=== PATIENT | male | born 1960 | race Caucasian/White ===

== ENCOUNTER 2023-01-23 09:47 | Outpatient (CLI) | payer OTHER ==
--- NOTE | 2023-01-23 14:32 | Ultrasound Report ---
PROCEDURE: Abdomen Limited INDICATIONS: UMBILICAL HERNIA TECHNIQUE: Real-time focused scanning was performed of the abdomen, with image documentation. COMPARISONS: None. FINDINGS: No fascial defect in the anterior abdominal wall in the area of concern. No fascial defect around the umbilicus. No subcutaneous cyst or solid mass. Irregular hypoechoic scar is seen in subcutaneous tis ricardo. IMPRESSION: No evidence of abdominal wall hernia. Reviewed by: Elsa Stallworth MD on 01/23/2023 2:31 PM PST Approved by: Elsa Stallworth MD on 01/23/2023 2:31 PM PST Station ID: [id number]
== END 2023-01-23 09:48 | disposition home or self-care (01) ==
LOC: DI 09:47
PROVIDERS: ATTEND Physician Assistant
DX: K42.9 Umbilical hernia without obstruction or gangrene (principal)

== ENCOUNTER 2024-11-18 00:24 | Inpatient (IN) ==
[2024-11-18 01:16] LABS: HCT - HEMATOCRIT 45.4 % (42.0-52.0); HGB - HEMOGLOBIN 15.0 g/dL (14.0-18.0); MEAN PLATELET VOLUME 9.5 fL (7.4-11.4); NRBC ABSOLUTE COUNT (AUTO) 0.00 x10^3/uL; NUCLEATED RED BLOOD CELLS AUTO 0.0 /100WBC; PLT - PLATELET COUNT 220 10^3/uL (130-450); RED CELL DISTRIBUTION WIDTH 12.9 % (12.0-15.0)
[2024-11-18 01:29] LABS: ALT ALANINE AMINOTRANSFERASE 247.0 IU/L (10-60); AST ASPARTATE AMINOTRANSFERASE 172.0 IU/L (10-42); BUN - BLOOD UREA NITROGEN 18.0 mg/dL (6-20); CARBON DIOXIDE - CO2 26.0 mmol/L (21-32); CREATININE 1.0 mg/dL (0.6-1.3); GFR - MDRD 75.0 (>89)
[2024-11-18] MEDS: ONDANSETRON 4 MG/2 ML VIAL IVP STA (01:29)
[2024-11-18] MEDS: HYDROmorphone 0.5 MG/0.5 ML SYRINGE IVP STA (01:29)
[2024-11-18] MEDS: SODIUM CHLORIDE 0.9% 1,000 ML IV STA (01:29)
[2024-11-18 01:47] LABS: GLUCOSE, URINE (UA) NEGATIVE (NEGATIVE); KETONES,URINE (UA) NEGATIVE (NEGATIVE)
[2024-11-18 01:48] LABS: OCCULT BLOOD,URINE TRACE (NEGATIVE)
[2024-11-18 01:53] LABS: SQUAMOUS EPITHELIAL CELL,UR RARE Squamous (<= Few)
[2024-11-18] MEDS ORDERED: HYDROmorphone 0.5 MG/0.5 ML SYRINGE IVP PRN (02:01)
--- NOTE | 2024-11-18 02:02 | ED Physician Documentation ---
PD HPI ABD PAIN Stated complaint Stated Complaint: ABD PX Chief complaint Chief Complaint: Abd Pain History obtained from History obtained from: Patient Additional information Additional information: 64yM with pmh gallstones p/w epigastric pain radiating to the back today. also with malaise. denies urinary sx, fever, n/v/d Meds/Allgy Home Medications Ambulatory Orders Medication Instructions Recorded Confirmed dicyclomine 10 mg capsule 10 mg PO QID PRN abdominal p ain 11/05/24 #10 caps hydrocodone 5 mg-acetaminophen 325 1 tab PO Q6H PRN pa in #10 tabs 11/05/24 mg tablet Allergies Allergies Allergy/AdvReac Type Severity Reaction Status Date / Time No Known Drug Allergies Allergy Verified 11/18/24 00:51 PFSH Active Problems All Active Problems (Updated 11/18/24 @ 02:17 by Nell Elder MD) Acute gallstone pancreatitis (Acute) Gallbladder attack (Acute) Gallstones (Acute) Recurrent upper abdominal pain (Acute) Medical History Medical History (Updated 11/18/24 @ 02:17 by Nell Elder MD) No pertinent past medical history Surgical History Surgical History (Updated 11/05/24 @ 08:04 by Owen Ross RN) Hx of appendectomy Social History Social History (Updated 11/05/24 @ 08:04 by Owen Ross, RN) Smoking Status: Never smoker Do you dip or chew tobacco?: No Do you vape?: No Living arrangement: At home Level: Independent Do you feel safe in your home environment?: Yes History of physical, verbal, emotional, or financial abuse?: No ETOH Use: Beer Frequency: Occasional Substance Use: denies use POLST Patient has POLST: No Exam Exam Vital Signs: Vital Signs x48h Temp Pulse Resp BP Pulse Ox 11/18/24 00:44 37.0 C 67 18 147/83 H 95 Constitutional normal general appearance, no apparent distress and average body habitus HENMT normocephalic, head/scalp atraumatic and oropharynx normal Eyes PERRL and EOMs intact bilaterally Neck/C-Spine visual inspection normal Respiratory breath sounds equal bilaterally, normal respiratory effort and clear to auscultation bilaterally Cardiovascular normal heart rate noted and regular rhythm noted Gastrointestinal epigastium ttp Genitourinary no CVA tenderness Results Vitals Vitals: Vital Signs - 24 hr 10/03/25 00:44 11/18/24 01:29 Temperature 37.0 C Temperature Source Tympanic Pulse Rate 67 Respiratory Rate 18 Blood Pressure 147/83 H O2 Saturation 95 O2 Source Room air Pain Intensity 5 7 Oxygen O2 Source Room air Labs Labs: Laboratory Tests 11/18/24 11/18/24 01:11 01:34 WBC 9.7 RBC 4.84 Hgb 15.0 Hct 45.4 MCV 93.8 MCH 31.0 MCHC 33.0 RDW 12.9 Plt Count 220 MPV 9.5 Neut # (Auto) 8.3 H Lymph # (Auto) 0.9 L [place] # (Auto) 0.4 Eos # (Auto) 0.0 Baso # (Auto) 0.0 Absolute Nucleated RBC 0.00 Nucleated RBC % 0.0 Sodium 138 Potassium 3.9 Chloride 105 Carbon Dioxide 26 Anion Gap 7.0 BUN 18 Creatinine 1.0 Estimated GFR (MDRD) 75 L Glucose 169 H Calcium 9.1 Total Bilirubin 1.0 AST 172 H ALT 247 H Alkaline Phosphatase 129 H Total Protein 7.2 Albumin 4.5 Globulin 2.7 Albumin/Globulin Ratio 1.7 Lipase 5978 H Urine Color DARK YELLOW Urine Clarity CLEAR Urine pH 5.0 Ur Specific [place] 1.020 Urine Protein TRACE Urine Glucose (UA) NEGATIVE Urine Ketones NEGATIVE Urine Occult Blood TRACE Urine Nitrite NEGATIVE Urine Bilirubin NEGATIVE Urine Urobilinogen 0.2 (NORMAL) Ur Leukocyte Esterase NEGATIVE Urine RBC 0-5 Urine WBC 0-3 Ur Squamous Epith Cells RARE Squamous Urine Bacteria None Seen Ur Microscopic Review INDICATED Urine Culture Comments NOT INDICATED PD Medical Decision Making ED course ED course: 64yM p/w gallstone pancreatitis today, found to have lipase >5000. d/w Dr. Briseno who states he can likely do ERCP thursday and will also evaluate patient for possible cholecystectomy. plan to admit to medicine Discharge Plan Discharge Patient Disposition: 66 [facility] DC/Xfer Condition: Stable Clinical Impression: Acute gallstone pancreatitis Prescriptions: No Action dicyclomine 10 mg capsule 10 mg PO QID PRN (Reason: abdominal pain) Qty: 10 0RF hydrocodone-acetaminophen 5-325 mg tablet 1 tab PO Q6H PRN (Reason: pain) Qty: 10 0RF Print Language: Danish
--- NOTE | 2024-11-18 02:41 | CT Report ---
PROCEDURE: CT Abdomen/Pelvis W INDICATIONS: abd pain CONTRAST: 100cc [id number] TECHNIQUE: After the administration of intravenous contrast, a CT scan of the abdomen and pelvis was performed. Images were recorded and evaluated at appropriate window settings. Reformats: coronal and sagittal. For radiation dose reduction, the following was used: automated exposure control, adjustment of mA and/or kV according to patient size. COMPARISON: CT abdomen pelvis 11/05/2024. FINDINGS: Image quality: Diagnostic. Lower chest: Unremarkable. Liver: Hepatic steatosis. No focal lesion identified. Gallbladder: Gallstones. Biliary tree: No intrahepatic or extrahepatic dilation, accounting for age. Spleen: No splenomegaly. Pancreas: Mild ill-defined fluid near the head and neck of the pancreas. No pancreatic ductal dilatation. No pancreatic calcifications. The pancreatic parenchyma enhances uniformly. Adrenals: No adrenal nodule. Kidneys and ureters: No hydronephrosis. Left peripelvic cyst. No renal cystic lesion which requires follow up. No solid mass. Stomach, bowel and peritoneum: Stomach is within normal limits. The proximal duodenum is fluid-filled and slightly hyperemic. No small bowel obstruction. A few colonic diverticuli. No diverticulitis. Appendix is presumably absent. Lymph nodes: No central or retroperitoneal adenopathy. Vessels: No infrarenal aortic aneurysm. Patent portal vein. PELVIS Reproductive organs: Unremarkable. Bladder: No abnormal wall thickening. Pelvic lymph nodes: No pelvic adenopathy by size criteria. Bones: No aggressive osseous abnormality. Other: No significant ventral or inguinal hernia. IMPRESSION: 1. Acute interstitial edematous pancreatitis. Small volume of free fluid near the head and neck of the pancreas. Associated duodenitis. 2. No biliary or pancreatic ductal dilatation is seen. 3. Gallstones. 4. Hepatic steatosis. Reviewed by: Shailesh Piper MD on 11/18/2024 2:37 AM PDT Approved by: Shailesh Piper MD on 11/18/2024 2:37 AM PDT Station ID: [id number]
[2024-11-18] MEDS: SODIUM CHLORIDE 0.9% 500 ML IV ONE (02:45)
[2024-11-18] MEDS ORDERED: DICYCLOMINE 10 MG CAPSULE PO PRN (02:53)
[2024-11-18] MEDS ORDERED: ONDANSETRON 4 MG/2 ML VIAL IVP PRN (02:55)
[2024-11-18] MEDS ORDERED: NITROGLYCERIN SL 0.4 MG TABLET SL PRN (02:55)
[2024-11-18] MEDS ORDERED: MELATONIN 3 MG TABLET PO PRN (02:55)
[2024-11-18] MEDS ORDERED: MORPHINE 10 MG/ML VIAL IVP PRN (02:55)
[2024-11-18] MEDS ORDERED: KETOROLAC 15 MG/ML VIAL IVP PRN (02:55)
[2024-11-18] MEDS ORDERED: IBUPROFEN 400 MG TABLET PO PRN (02:58)
[2024-11-18] MEDS ORDERED: CALAMINE/ZINC OXIDE 177 ML BOTTLE TOP PRN (02:59)
[2024-11-18] MEDS ORDERED: CARBOXYMETHYLCELLULOSE OPHTH DROPS EACHEYE PRN (02:59)
[2024-11-18] MEDS ORDERED: PHENOL THROAT SPRAY 177 ML MM PRN (02:59)
[2024-11-18] MEDS ORDERED: BENZOCAINE/MENTHOL LOZENGE MM PRN (02:59)
[2024-11-18 03:13] LABS: CHOL/HDL RATIO 4.4 (<5.0); LDL/HDL RATIO 2.8 (<3.6); VLDL CHOLESTEROL 29 mg/dL
--- NOTE | 2024-11-18 04:29 | HISTORY & PHYSICAL EXAMINATION ---
Chief Complaint Chief Complaint Chief Complaint: abd pain, nausea, vomiting History of Present Illness History of Present Illness HPI Comment/Other: pt with intermitted abd pain + cramping + vomiting x 2 months. h/o open appendectomy d/t perforated appendicitis. pt was recently seen in er d/t pain and was diagnosed with gallstones with cholecystitis and given rx for norco + dicyclomine and told to f/u with pcp, who advised that pt will need to be seen by gi, which has not happened yet. pt started having worsening pain over last 3- 4 days, and last night he called nursing hotline with [facility], where he was able to speak with a doctor, who stated that he may be having a dislodging stone or infection and told to come to ed [facility]. pt has 2 sisters who have had cholesytectomies. he takes no other meds. no chest pain or sob. diet over last couple of months has been poor -- limited to soups and light foods. Review of Systems Status of ROS: 10 or more systems reviewed and unremarkable except as noted in history and below PFSH Active Problems All Active Problems (Updated 11/18/24 @ 02:17 by Nell Elder MD) Acute gallstone pancreatitis (Acute) Gallbladder attack (Acute) Gallstones (Acute) Recurrent upper abdominal pain (Acute) Medical History Medical History (Updated 11/18/24 @ 02:17 by Nell Elder MD) No pertinent past medical history Surgical History Surgical History (Updated 11/05/24 @ 08:04 by Owen oRss RN) Hx of appendectomy Social History Social History (Updated 11/05/24 @ 08:04 by Owen Ross RN) Smoking Status: Never smoker Do you dip or chew tobacco?: No Do you vape?: No Living arrangement: At home Level: Independent Do you feel safe in your home environment?: Yes History of physical, verbal, emotional, or financial abuse?: No ETOH Use: Beer Frequency: Occasional Substance Use: denies use POLST Patient has POLST: No Meds/Allgy Home Medications Ambulatory Orders Medication Instructions Recorded Confirmed dicyclomine 10 mg capsule 10 mg PO QID PRN abdominal p ain 11/05/24 #10 caps hydrocodone 5 mg-acetaminophen 325 1 tab PO Q6H PRN pa in #10 tabs 11/05/24 mg tablet Allergies Allergies Allergy/AdvReac Type Severity Reaction Status Date / Time No Known Drug Allergies Allergy Verified 11/18/24 00:51 Exam Exam Vital Signs: Vital Signs x48h Temp Pulse Pulse Resp BP BP Pulse Ox 11/18/24 03:56 36.8 C 74 16 160/90 H 97 11/18/24 03:40 37.2 C 68 18 128/84 99 11/18/24 02:51 65 18 132/80 H 99 11/18/24 00:44 37.0 C 67 18 147/83 H 95 gen - aaox3, nad heent - eomi, nc/at heart - per ed charting lungs - no obvious distress / retractions abd - details per ed charting msk - no acute trauma / pathology Conclusion/Plan Problem List (1) Acute gallstone pancreatitis: Lab Results 11/18/24 01:11 11/18/24 01:11 Other Other Results/Comments: pt with - - acute on chronic abdominal pain d/t gallstone pancreatitis also with transaminitis (below) pain control, ivf gen surg consulted --> plan for lap cruz and/or ercp zosyn started as well for now - tranasminitis in setting of above avoid hepatotoxins - hyperglycemia exacerbated d/t above no reported or known h/o t2dm check a1c, tsh, lipids - elevated bp in setting of pain d/t above no reported or known h/o htn monitor for now
[2024-11-18] MEDS: PIPERACILLIN/TAZOBACTAM 4.5 GM in SODIUM CHLORIDE 0.9% MINIBAG 100 ML IV STA (04:41)
[2024-11-18] MEDS: LACTATED RINGERS 1,000 ML IV SCH (05:10)
[2024-11-18 05:55] LABS: HCT - HEMATOCRIT 39.9 % (42.0-52.0); HGB - HEMOGLOBIN 13.4 g/dL (14.0-18.0); MEAN PLATELET VOLUME 10.1 fL (7.4-11.4); NRBC ABSOLUTE COUNT (AUTO) 0.00 x10^3/uL; NUCLEATED RED BLOOD CELLS AUTO 0.0 /100WBC; PLT - PLATELET COUNT 208 10^3/uL (130-450); RED CELL DISTRIBUTION WIDTH 13.0 % (12.0-15.0)
[2024-11-18 06:14] LABS: ALT ALANINE AMINOTRANSFERASE 208.0 IU/L (10-60); AST ASPARTATE AMINOTRANSFERASE 118.0 IU/L (10-42); BUN - BLOOD UREA NITROGEN 14.0 mg/dL (6-20); CARBON DIOXIDE - CO2 26.0 mmol/L (21-32); CREATININE 0.9 mg/dL (0.6-1.3); GFR - MDRD 85.0 (>89)
[2024-11-18] MEDS: LACTOBACILLUS RHAMNOSUS GG CAPSULE PO SCH (08:45)
[2024-11-18] MEDS: PANTOPRAZOLE 40 MG VIAL IVP SCH (08:45)
[2024-11-18] MEDS: ethyl alcohoL 62% SWAB AMPULE NAS SCH (08:45)
[2024-11-18 09:07] LABS: ESTIMATED AVERAGE GLUCOSE 105 mg/dL (70-100); HEMOGLOBIN A1c% 5.3 % (4.27-6.07)
--- NOTE | 2024-11-18 09:19 | CONSULTATION NOTE ---
Referring Provider Name of Referring Provider:: Dr. Elder Consult Date: 11/18/24 Chief Complaint Chief Complaint Chief Complaint: Abdominal pain History of Present Illness History Obtained From History obtained from: Patient History of Present Illness HPI Comment/Other: 64 yo M w/out significant pmh and past surgical history of open appendectomy for perforated appendicitis who presented to the ED on 11/18 with significant abdominal pain with associated nausea and vomiting. States for the past two months he has had multiple episodes of pain in the right side of the abdomen which prompted an ED visit last month. At that time he was told the pain was from stones in his gallbladder for which he was referred outpatient to a surgeon. Due to insurance issues he was unable to see the surgeon he was referred to and subsequently got referred to a surgeon at [facility] and has an appointment for mid November. Over the last few days he developed worsening pain all over his abdomen which was more severe than his previous episodes prompting his visit to the ED. He had associated nausea, vomiting, and bloating and states that he has stopped passing flatus. He does have multiple family members who have required cholecystectomies for gallbladder issues in the past. He denies any current chest pain, SOB, fevers, chills, dysuria or headaches. PFSH Active Problems All Active Problems (Updated 11/18/24 @ 02:17 by Nell Elder MD) Acute gallstone pancreatitis (Acute) Gallbladder attack (Acute) Gallstones (Acute) Recurrent upper abdominal pain (Acute) Medical History Medical History (Updated 11/18/24 @ 02:17 by Nell Elder MD) No pertinent past medical history Surgical History Surgical History (Updated 11/05/24 @ 08:04 by Owen Ross RN) Hx of appendectomy Social History Social History (Updated 11/05/24 @ 08:04 by Owen Ross RN) Smoking Status: Never smoker Second hand tobacco smoke exposure: No Do you dip or chew tobacco?: No Do you vape?: No Living arrangement: At home Level: Independent Do you feel safe in your home environment?: Yes History of physical, verbal, emotional, or financial abuse?: No ETOH Use: Beer Frequency: Occasional Substance Use: denies use POLST Patient has POLST: No Meds/Allgy Home Medications Ambulatory Orders Medication Instructions Recorded Confirmed dicyclomine 10 mg capsule 10 mg PO QID PRN abdominal p ain 11/05/24 #10 caps hydrocodone 5 mg-acetaminophen 325 1 tab PO Q6H PRN pa in #10 tabs 11/05/24 mg tablet Allergies Allergies Allergy/AdvReac Type Severity Reaction Status Date / Time No Known Drug Allergies Allergy Verified 11/18/24 00:51 Results Lab Results Lab results reviewed: Yes 11/18/24 05:04 11/18/24 05:04 Other Lab Results: Lab Results x24hrs 11/18/24 11/18/24 11/18/24 Range/Units 05:04 01:34 01:11 WBC 7.4 9.7 (4.8-10.8) x10^3/uL RBC 4.24 L 4.84 (4.70-6.10) 10^6/uL Hgb 13.4 L 15.0 (14.0-18.0) g/dL Hct 39.9 L 45.4 (42.0-52.0) % MCV 94.1 H 93.8 (80.0-94.0) fL MCH 31.6 H 31.0 (27.0-31.0) pg MCHC 33.6 33.0 (32.0-36.0) g/dL RDW 13.0 12.9 (12.0-15.0) % Plt Count 208 220 (130-450) 10^3/uL MPV 10.1 9.5 (7.4-11.4) fL Neut # (Auto) 6.0 8.3 H (1.5-6.6) 10^3/uL Lymph # (Auto) 1.0 L 0.9 L (1.5-3.5) 10^3/uL [place] # (Auto) 0.4 0.4 (0.0-1.0) 10^3/uL Eos # (Auto) 0.0 0.0 (0.0-0.7) 10^3/uL Baso # (Auto) 0.0 0.0 (0.0-0.1) 10^3/uL Absolute Nucleated RBC 0.00 0.00 x10^3/uL Nucleated RBC % 0.0 0.0 /100WBC Sodium 138 138 (135-145) mmol/L Potassium 4.2 3.9 (3.5-4.5) mmol/L Chloride 108 105 (101-111) mmol/L Carbon Dioxide 26 26 (21-32) mmol/L Anion Gap 4.0 L 7.0 (6-13) BUN 14 18 (6-20) mg/dL Creatinine 0.9 1.0 (0.6-1.3) mg/dL Estimated GFR (MDRD) 85 L 75 L (>89) Glucose 117 H 169 H (74-104) mg/dL Calcium 8.3 L 9.1 (8.5-10.3) mg/dL Magnesium 2.0 (1.7-2.3) mg/dL Total Bilirubin 0.8 1.0 (0.2-1.0) mg/dL AST 118 H 172 H (10-42) IU/L ALT 208 H 247 H (10-60) IU/L Alkaline Phosphatase 113 129 H (42-121) IU/L Total Protein 6.4 7.2 (6.4-8.9) g/dL Albumin 4.2 4.5 (3.2-5.5) g/dL Globulin 2.2 2.7 (2.1-4.2) g/dL Albumin/Globulin Ratio 1.9 1.7 (1.0-2.2) Triglycerides 146 mg/dL Cholesterol 199 ( - 200) mg/dL LDL Cholesterol, Calc 125 ( - 129) mg/dL VLDL Cholesterol 29 mg/dL HDL Cholesterol 45 L (60 - ) mg/dL LDL/HDL Ratio 2.8 (<3.6) Cholesterol/HDL Ratio 4.4 (<5.0) Lipase 5978 H (11-82) U/L TSH 2.19 (0.34-5.60) uIU/mL Urine Color DARK YELLOW Urine Clarity CLEAR (CLEAR) Urine pH 5.0 (5.0-7.5) PH Ur Specific [place] 1.020 (1.002-1.030) Urine Protein TRACE (NEGATIVE) mg/dL Urine Glucose (UA) NEGATIVE (NEGATIVE) mg/dL Urine Ketones NEGATIVE (NEGATIVE) mg/dL Urine Occult Blood TRACE (NEGATIVE) Urine Nitrite NEGATIVE (NEGATIVE) Urine Bilirubin NEGATIVE (NEGATIVE) Urine Urobilinogen 0.2 (NORMAL) (NORMAL) E.U./dL Ur Leukocyte Esterase NEGATIVE (NEGATIVE) Urine RBC 0-5 (0-5) /HPF Urine WBC 0-3 (0-3) /HPF Ur Squamous Epith Cells RARE Squamous (<= Few) Urine Bacteria None Seen (None Seen) /HPF Ur Microscopic Review INDICATED Urine Culture Comments NOT INDICATED Diagnostic Imaging Results Diagnostic Imaging Results: positive Final report reviewed Review of Systems Status of ROS: 10 or more systems reviewed and unremarkable except as noted in history and below Exam Exam Vital Signs: Vital Signs x48h Temp Pulse Pulse Resp BP BP Pulse Ox 11/18/24 03:56 36.8 C 74 16 160/90 H 97 11/18/24 03:40 37.2 C 68 18 128/84 99 11/18/24 02:51 65 18 132/80 H 99 Constitutional normal general appearance and no apparent distress HENMT normocephalic and head/scalp atraumatic Eyes conjunctivae normal and no scleral icterus Neck/C-Spine visual inspection normal Respiratory normal respiratory effort Cardiovascular normal heart rate noted and regular rhythm noted Gastrointestinal abdomen abnormal to inspection (Lower midline surgical scar consistent with previous open appendectomy), abdomen soft to palpation and tender to palpation (Mild diffuse TTP but more severe in the epigastrium) Extremities normal to inspection Neurology GCS 15 Psychiatry cooperative and affect normal Skin skin color normal Conclusion/Plan Problem List (1) Acute gallstone pancreatitis: Plan: - RUQ US ordered to evaluate gallbladder - Continue supportive care for pancreatitis - Continue to monitor lipase - Will plan for cholecystectomy before discharge - Rest of care per primary Lab Results Lab results reviewed: Yes 11/18/24 05:04 11/18/24 05:04 Diagnostic Imaging Results Diagnostic Imaging Results: positive Final report reviewed
[2024-11-18] MEDS ORDERED: MORPHINE 2 MG/ML CARPUJECT IVP PRN (10:09)
[2024-11-18] MEDS: PIPERACILLIN/TAZOBACTAM 3.375 GM in SODIUM CHLORIDE 0.9% MINIBAG 100 ML IV SCH (11:10)
--- NOTE | 2024-11-18 12:47 | PROVIDER PROGRESS NOTE ---
Progress Note Progress Note Progress Note: General Surgery Pre-op Note Randy is a 64 year old male with clinical, lab, and image findings consistent with gallstone pancreatitis. It is my recommendation that he undergo laparoscopic cholecystetomy, possible open cholecystectomy, possible intra-oper ative cholangiography (IOC). At the present time he is pain free without clinical, image, or lab evidence of choledocholithiasis. His serum lipase was 5,978 and T Bili 0.8 at 0500 today. The serum lipase will be checked again later this afternoon. Surgery is scheduled for tomorrow morning. He will be permitted to take clears today and be made NPO after midnight. I will write the transfer orders tomorrow morning. Consent: Randy has been counseled for the procedure, it's indications, risks, benefits and expected outcome. We specifically discussed risks associated with anesthesia, bleeding, infection, injury to surrounding structures which may require additional surgery, and the possible need for conversion to an open procedure. We also discussed the possible need for a blood transfusion with its risks and benefits. Randy understands the content of our discussion and requests that we proceed with the procedure as outlined. Gibran Akhtar MD, [facility] General Surgery Service
--- NOTE | 2024-11-18 13:03 | Ultrasound Report ---
PROCEDURE: US Abdomen Limited INDICATIONS: Suspect gallstone pancreatitis TECHNIQUE: Real-time focused scanning was performed of the abdomen, with image documentation. COMPARISONS: CT examination November 18, 2024. FINDINGS: Liver: Liver is normal in size and homogeneous in echotexture. Gallbladder: Gallbladder contracted and partially secured by calcified gallstones. Biliary ducts: Intrahepatic bile ducts are non-dilated. Extrahepatic bile duct caliber measures 3.5 mm. Normal is 6-7 mm or less in diameter, or 10 mm or less post-cholecystectomy. Pancreas: Not visible due to overlying bowel gas Right kidney: Normal in size and echotexture. Right kidney measures 10.6 cm long. 0.7 x 0.8 x 0.5 cm calcified stone in the right kidney pelvis. No hydronephrosis. No solid masses. Simple renal cysts. No complex renal cystic lesions which require follow-up. IVC: Intrahepatic inferior vena cava is patent. Miscellaneous: No free abdominal fluid. IMPRESSION: 1. Pancreas obscured by bowel gas. 2. Cholelithiasis. 3. No biliary duct dilation. Reviewed by: Segun Watt MD on 11/18/2024 1:00 PM PDT Approved by: Segun Watt MD on 11/18/2024 1:00 PM PDT Station ID: [id number]
--- NOTE | 2024-11-18 13:26 | PROVIDER PROGRESS NOTE ---
<Statement entered by Eulogio Medina, DO - 11/18/24 18:43> I was present with the JANIYA student on the hospitalist service. I personally verified the history of present illness and performed the physical examination and medical decision making. I have verified all of the medical students documentation for this encounter and agree with the plan of care below. In brief this is a 64-year-old gentleman with a past medical history notable for symptomatic cholelithiasis and recent diagnosis of mild cholecystitis who is planned for outpatient cholecystectomy presenting with acute gallstone pancreatitis. He is responding well to initial treatments, and improving expectedly. He is planned for cholecystectomy likely 10 AM. He is n.p.o. at midnight. Minimal needs for pain control at this time. Does not have much of an appetite, but he is slowly eating. His fluids are being adjusted accordingly. Subjective Prog Note Date Prog Note Date: 11/18/24 Prog Note Time: 13:27 Subjective Subjective: Randy Wheatley is a 64-year-old male with PMH of perforated appendicitis s/p open appendectomy, and cholelithiasis with cholecystitis who presents with 3-4 days of worsening abdominal pain/cramping and nausea found on CT to have acute gallstone pancreatitis with plan for cholecystectomy. On day of this assessment 11/18 at 1300, patient reports vast improvement in abdominal pain and nausea. He localizes his pain to the lower abdomen, which is improved from admission where the pain radiated laterally and upwards to the epigastrium. He is no longer nauseous. He has not required PRN pain or nausea medications since ~0130 last night. He states he has been consuming broth, juice, and water without nausea, and will try eating some jello and banana for dinner. He is passing gas but has not had a bowel movement since 10 AM. He is aware he will likely go for surgery either tomorrow or Thursday and feels well- informed regarding the plan. Current Medications Current Medications Current Medications: Current Medications Generic Name Dose Route Start Last Admin Trade Name Freq PRN Reason Stop Dose Admin Alcohol 1 amp 11/18/24 09:00 11/18/24 08:45 Ethyl Alcohol 62% Swab Ampule DELIA 1 amp BID SHO Administration Calamine 1 applic 11/18/24 02:59 Calamine/Zinc Oxide 177 Ml Bottle TOP PRN PRN SKIN CARE Carboxymethylcellulose 1 drops 11/18/24 02:59 Carboxymethylcellulose Ophth Drops EACHEYE PRN PRN Dry Eye Dicyclomine HCl 10 mg 11/18/24 02:53 Dicyclomine 10 Mg Capsule PO QID PRN Abdominal Pain Lactated Ringer's 1,000 mls @ 150 mls/hr 11/18/24 03:00 11/18/24 12:59 Lr IV 150 mls/hr .Q6H40M SHO Administration Piperacillin Sod/Tazobactam 100 mls @ 200 mls/hr 11/18/24 10:30 11/18/24 11:10 Sod 3.375 gm/ Sodium Chloride IV 200 mls/hr Q6H SHO Administration Ibuprofen 400 mg 11/18/24 02:58 Ibuprofen 400 Mg Tablet PO Q6HR PRN Pain or Fever > 38C (100.4F) Ketorolac Tromethamine 15 mg 11/18/24 02:55 Ketorolac 15 Mg/Ml Vial IVP 11/21/24 02:54 Q8H PRN Severe Pain (Level 7-10) Lactobacillus Rhamnosus 1 cap 11/18/24 09:00 11/18/24 08:45 Lactobacillus Rhamnosus Gg Capsule PO 1 cap DAILY SHO Administration Melatonin 3 mg 11/18/24 02:55 Melatonin 3 Mg Tablet PO QPM PRN sleep Morphine Sulfate 2 mg 11/18/24 10:09 Morphine 2 Mg/Ml Carpuject IVP Q4H PRN Severe Pain (Level 7-10) Nitroglycerin 0.4 mg 11/18/24 02:55 Nitroglycerin Sl 0.4 Mg Tablet SL Q5MIN PRN Chest Pain Ondansetron HCl 4 mg 11/18/24 02:55 Ondansetron 4 Mg/2 Ml Vial IVP Q8H PRN Nausea / Vomiting Pantoprazole Sodium 40 mg 11/18/24 09:00 11/18/24 08:45 Pantoprazole 40 Mg Vial IVP 40 mg DAILY SHO Administration Phenol/Menthol 2 sprays 11/18/24 02:59 Phenol Throat [place] 177 Ml MM Q2HR PRN Throat Pain Throat Lozenges 1 lozenge 11/18/24 02:59 Benzocaine/Menthol Lozenge MM Q2HR PRN Throat pain Objective Vital Signs/Intake & Output Reviewed Vital Signs: Yes Vital Signs: Vital Signs x48h Temp Pulse Resp BP Pulse Ox 11/18/24 09:35 37.1 C 64 16 153/86 H 94 Intake & Output: Intake & Output 11/15/24 11/16/24 11/17/24 11/18/24 23:59 23:59 23:59 23:59 Intake Total 2360 / 2360 Balance 2360 / 2360 Weight (kg) 101 kg Objective General Appearance: positive No acute distress and Alert Eyes Bilateral: positive Normal inspection, PERRL and Conjunctivae nml ENT: positive ENT inspection nml Neck: positive Nml inspection, No JVD and Trachea midline Respiratory: positive No respiratory distress and Breath sounds nml Cardiovascular: positive Regular rate & rhythm and No murmur Peripheral Pulses: 2+: Radial (R), 2+: Radial (L), 2+: Dorsalis pedis (R), 2+: Dorsalis pedis (L), 2+: Posterior tibialis (R) and 2+: Posterior tibialis (L) Abdomen: positive Non-tender (Improved from admission, no longer with severe tenderness to palpation) and Abnml bowel sounds (Hyperactive bowel tones); negative Guarding Skin: positive Color nml, Warm and Dry Extremities: positive Non-tender, Full ROM, Nml appearance and No pedal edema Neurologic/Psychiatric: positive Oriented x3, Motor nml, Sensation nml and Mood/affect nml Lab Results 11/18/24 05:04 11/18/24 05:04 Other Labs: Lab Results x24hrs 11/18/24 11/18/24 11/18/24 Range/Units 05:04 01:34 01:11 WBC 7.4 9.7 (4.8-10.8) x10^3/uL RBC 4.24 L 4.84 (4.70-6.10) 10^6/uL Hgb 13.4 L 15.0 (14.0-18.0) g/dL Hct 39.9 L 45.4 (42.0-52.0) % MCV 94.1 H 93.8 (80.0-94.0) fL MCH 31.6 H 31.0 (27.0-31.0) pg MCHC 33.6 33.0 (32.0-36.0) g/dL RDW 13.0 12.9 (12.0-15.0) % Plt Count 208 220 (130-450) 10^3/uL MPV 10.1 9.5 (7.4-11.4) fL Neut # (Auto) 6.0 8.3 H (1.5-6.6) 10^3/uL Lymph # (Auto) 1.0 L 0.9 L (1.5-3.5) 10^3/uL [place] # (Auto) 0.4 0.4 (0.0-1.0) 10^3/uL Eos # (Auto) 0.0 0.0 (0.0-0.7) 10^3/uL Baso # (Auto) 0.0 0.0 (0.0-0.1) 10^3/uL Absolute Nucleated RBC 0.00 0.00 x10^3/uL Nucleated RBC % 0.0 0.0 /100WBC Sodium 138 138 (135-145) mmol/L Potassium 4.2 3.9 (3.5-4.5) mmol/L Chloride 108 105 (101-111) mmol/L Carbon Dioxide 26 26 (21-32) mmol/L Anion Gap 4.0 L 7.0 (6-13) BUN 14 18 (6-20) mg/dL Creatinine 0.9 1.0 (0.6-1.3) mg/dL Estimated GFR (MDRD) 85 L 75 L (>89) Glucose 117 H 169 H (74-104) mg/dL Estimat Average Glucose 105 H (70-100) mg/dL Hemoglobin A1c % 5.3 (4.27-6.07) % Calcium 8.3 L 9.1 (8.5-10.3) mg/dL Magnesium 2.0 (1.7-2.3) mg/dL Total Bilirubin 0.8 1.0 (0.2-1.0) mg/dL AST 118 H 172 H (10-42) IU/L ALT 208 H 247 H (10-60) IU/L Alkaline Phosphatase 113 129 H (42-121) IU/L Total Protein 6.4 7.2 (6.4-8.9) g/dL Albumin 4.2 4.5 (3.2-5.5) g/dL Globulin 2.2 2.7 (2.1-4.2) g/dL Albumin/Globulin Ratio 1.9 1.7 (1.0-2.2) Triglycerides 146 mg/dL Cholesterol 199 ( - 200) mg/dL LDL Cholesterol, Calc 125 ( - 129) mg/dL VLDL Cholesterol 29 mg/dL HDL Cholesterol 45 L (60 - ) mg/dL LDL/HDL Ratio 2.8 (<3.6) Cholesterol/HDL Ratio 4.4 (<5.0) Lipase 5978 H (11-82) U/L TSH 2.19 (0.34-5.60) uIU/mL Urine Color DARK YELLOW Urine Clarity CLEAR (CLEAR) Urine pH 5.0 (5.0-7.5) PH Ur Specific [place] 1.020 (1.002-1.030) Urine Protein TRACE (NEGATIVE) mg/dL Urine Glucose (UA) NEGATIVE (NEGATIVE) mg/dL Urine Ketones NEGATIVE (NEGATIVE) mg/dL Urine Occult Blood TRACE (NEGATIVE) Urine Nitrite NEGATIVE (NEGATIVE) Urine Bilirubin NEGATIVE (NEGATIVE) Urine Urobilinogen 0.2 (NORMAL) (NORMAL) E.U./dL Ur Leukocyte Esterase NEGATIVE (NEGATIVE) Urine RBC 0-5 (0-5) /HPF Urine WBC 0-3 (0-3) /HPF Ur Squamous Epith Cells RARE Squamous (<= Few) Urine Bacteria None Seen (None Seen) /HPF Ur Microscopic Review INDICATED Urine Culture Comments NOT INDICATED Diagnostic Imaging Diagnostic Imaging Results: positive Final report reviewed Assessment/Plan Problem List (1) Acute gallstone pancreatitis: Impression: Patient presents with 3-4 days of worsening abdominal pain and cramping. He has been dealing with symptomatic cholelithiasis for the past few months. He was actually recently found to have mild cholecystitis and was recommended for elective cholecystectomy which was pending. He represented to our ED on 11/17 this admission with persistent, worsening midepigastric pain radiating to the back, abdominal cramping, N/V, and malaise. He was found to have elevated lipase >5,[address] A/P significant for acute interstitial edematous pancreatitis with associated duodenitis. I discussed this with general surgery today, and because his bilirubin is normal and he has no clear ductal dilation, ERCP is not necessarily indicated at this time. General surgery is going to take him for elective cholecystectomy and they may do an IOC at that time. - Plan for cholecystectomy likely Thursday a.m., n.p.o. midnight - Per surgery, will trend lipase a.m. - Trend CMP daily - Supportive care with IVF: LR 150 ml/h (Approximate 1.5 cc/kg/h) - Per guidelines, will start early nutrition within 24 hours, patient does not have much of an appetite but is eating scant amounts. No restrictions - Pain management: Morphine 2mg IVP q4h PRN, Ketorolac 15mg IVP q8h PRN, Would preference towards NSAIDs - Nausea management: Ondansetron 8mg IV q8h PRN - Continue Piperacillin/Tazobactam 3.375g IV q6h Likely to discontinue after surgery if he is not perforated - Likely discharge 1 to 2 days after surgery, goal for discharge is eating and drinking, pain control (2) Transaminitis: Impression: Elevated AST, ALT on admission at 172, 247. Bilirubin normal. Stable in the morning of 11/18 AST 118, ALT 208. Consistent with his diagnosis of pancreatitis. - Trend CMP daily - Avoid hepatotoxic agents at this time (3) Hyperglycemia: Impression: BG elevated to 169 on admission, 11/18 it is decreased to 117. Patient denies a history of diabetes mellitus--HgbA1c obtained is 5.3%. TSH and lipid panel are unremarkable. I suspect multifactorial secondary to stress hyperglycemia and acute pancreatic dysfunction from above. - Monitor BG; trending CMP daily (4) Hypertension: Impression: BP elevated up to SBP 160s on 11/18. He denies a history of hypertension or other cardiac history. Prior BP readings from his ER visit in 11/05 also demonstrate hypertension. He denies chest pain, palpitations. Other VSS. Likely secondary to acute pain and inflammation from pancreatitis. - Monitor BP per unit protocol - Warrants outpatient follow-up if hypertension persists beyond resolution of pancreatitis Qualifiers: Hypertension type: unspecified Qualified Code(s): I10 - Essential (primary) hypertension
--- NOTE | 2024-11-18 15:02 | PHARMACY PROGRESS NOTE ---
Best Possible Medication History Admit Date and Time: 11/18/24 740902 Home Medications Medication Instructions Recorded Confirmed Type dicyclomine 10 mg capsule 10 mg PO QID PRN abdominal p ain 11/05/24 11/18/24 Rx #10 caps hydrocodone 5 mg-acetaminophen 325 1 tab PO Q6H PRN pa in #10 tabs 11/05/2411/18 Rx mg tablet Processed by: Pharmacy Medications reviewed in ED?: No Medication History completed: Yes Patient Interview: Completed Secondary Source(s): Insurance records [facility] Statement: As the person ultimately responsible for medication therapy, providers are able to order a medication from an existing home medication list in [facility] via the "Reconcile Routine" prior to Confirmation of that medication by technical support director. Such practice is discouraged except when the physician, in their clinical judgment, deems that a medical need exists for a medication without regard to previous use.
[2024-11-19 06:18] LABS: ALT ALANINE AMINOTRANSFERASE 131.0 IU/L (10-60); AST ASPARTATE AMINOTRANSFERASE 41.0 IU/L (10-42); BUN - BLOOD UREA NITROGEN 8.0 mg/dL (6-20); CARBON DIOXIDE - CO2 28.0 mmol/L (21-32); CREATININE 1.0 mg/dL (0.6-1.3); GFR - MDRD 75.0 (>89)
[2024-11-19] MEDS ORDERED: iohexoL-240 20 ML VIAL IVP ONE (07:32)
[2024-11-19] MEDS ORDERED: BUPIVACAINE 0.5% PF 10 ML VIAL ONE (07:32)
[2024-11-19] MEDS ORDERED: LIDOCAINE 1%-EPI 1:100000 20 ML MDV ONE (07:33)
[2024-11-19] MEDS ORDERED: MIDAZOLAM 2 MG/2 ML VIAL ONE (07:36)
[2024-11-19] MEDS ORDERED: fentaNYL 100 MCG/2 ML VIAL ONE ×2 (07:36→08:45)
[2024-11-19] MEDS ORDERED: METOCLOPRAMIDE 10 MG/2 ML VIAL IVP PRN (07:54)
[2024-11-19] MEDS ORDERED: MORPHINE 2 MG/ML CARPUJECT IVP PRN (07:54)
[2024-11-19] MEDS ORDERED: ONDANSETRON 4 MG/2 ML VIAL IVP PRN (07:54)
[2024-11-19] MEDS ORDERED: NALOXONE 0.4 MG/ML VIAL IVP PRN (07:54)
[2024-11-19] MEDS ORDERED: ATROPINE ABBOJECT 1 MG/10 ML SYRINGE IVP PRN (07:54)
[2024-11-19] MEDS ORDERED: ePHEDrine 50 MG/ML VIAL IVP PRN (07:54)
[2024-11-19] MEDS ORDERED: fentaNYL 100 MCG/2 ML VIAL IVP PRN (07:54)
[2024-11-19] MEDS ORDERED: HYDROmorphone 0.5 MG/0.5 ML SYRINGE IVP PRN (07:54)
--- NOTE | 2024-11-19 07:57 | ANESTHESIA PROCEDURE NOTE ---
Pre-Anesthesia VS, & Labs Diagnosis Surgical Diagnosis:: acute cholecystitis Procedure Procedure: lap cruz Vitals Vital Signs: Temp Pulse Resp BP Pulse Ox 37.0 C 66 16 127/81 95 11/19/24 04:40 11/19/24 04:40 11/19/24 04:40 11/19/24 04:40 11/19/24 04:40 NPO NPO: >8 hours Lab Results Current Lab Results: Laboratory Tests 11/19/24 05:25: Sodium 139, Potassium 3.8, Chloride 106, Carbon Dioxide 28, A nion Gap 5.0 L, BUN 8, Creatinine 1.0, Estimated GFR (MDRD) 75 L, Glucose 102, Calcium 8.8, Total Bilirubin 1.2 H, AST 41, ALT 131 H, Alkaline Phosphatase 108, Total Protein 6.0 L, Albumin 3.9, Globulin 2.1, Albumin/Globulin Ratio 1.9 11/18/24 18:49: Lipase 488 H 11/18/24 05:04: WBC 7.4, RBC 4.24 L, Hgb 13.4 L, Hct 39.9 L, MCV 94.1 H, MCH 31.6 H, MCHC 33.6, RDW 13.0, Plt Count 208, MPV 10.1, Neut # (Auto) 6.0, Lymph # (Auto) 1.0 L, [place] # (Auto) 0.4, Eos # (Auto) 0.0, Baso # (Auto) 0.0, Absolute Nucleated RBC 0.00, Nucleated RBC % 0.0, Sodium 138, Potassium 4.2, Chloride 108, Carbon Dioxide 26, Anion Gap 4.0 L, BUN 14, Creatinine 0.9, Estimated GFR (MDRD) 85 L, Glucose 117 H, Calcium 8.3 L, Magnesium 2.0, Total Bilirubin 0.8, A ST 118 H, ALT 208 H, Alkaline Phosphatase 113, Total Protein 6.4, Albumin 4.2, Globulin 2.2, Albumin/Globulin Ratio 1.9 11/18/24 01:11: WBC 9.7, RBC 4.84, Hgb 15.0, Hct 45.4, MCV 93.8, MCH 31.0, MCHC 33.0, RDW 12.9, Plt Count 220, MPV 9.5, Neut # (Auto) 8.3 H, Lymph # (Auto) 0.9 L, [place] # (Auto) 0.4, Eos # (Auto) 0.0, Baso # (Auto) 0.0, Absolute Nucleated RBC 0.00, Nucleated RBC % 0.0, Sodium 138, Potassium 3.9, Chloride 105, Carbon Dioxide 26, Anion Gap 7.0, BUN 18, Creatinine 1.0, Estimated GFR (MDRD) 75 L, G lucose 169 H, Estimat Average Glucose 105 H, Hemoglobin A1c % 5.3, Calcium 9.1, Total Bilirubin 1.0, AST 172 H, ALT 247 H, Alkaline Phosphatase 129 H, Total Protein 7.2, Albumin 4.5, Globulin 2.7, Albumin/Globulin Ratio 1.7, Triglycerides 146, Cholesterol 199, LDL Cholesterol, Calc 125, VLDL Cholesterol 29, HDL Cholesterol 45 L, LDL/HDL Ratio 2.8, Cholesterol/HDL Ratio 4.4, Lipase 5978 H, TSH 2.19 11/18/24 05:04 11/19/24 05:25 Meds/Allgy Home Medications Ambulatory Orders Medication Instructions Recorded Confirmed dicyclomine 10 mg capsule 10 mg PO QID PRN abdominal p ain 11/05/24 11/18/24 #10 caps hydrocodone 5 mg-acetaminophen 325 1 tab PO Q6H PRN pa in #10 tabs 11/05/24 11/18/24 mg tablet Allergies Allergies Allergy/AdvReac Type Severity Reaction Status Date / Time No Known Drug Allergies Allergy Verified 11/18/24 00:51 PFSH Active Problems All Active Problems Hypertension (Chronic) Hyperglycemia (Acute) Transaminitis (Acute) Acute gallstone pancreatitis (Acute) Gallbladder attack (Acute) Gallstones (Acute) Recurrent upper abdominal pain (Acute) Medical History Medical History No pertinent past medical history Surgical History Surgical History Hx of appendectomy Social History Social History Smoking Status: Never smoker Second hand tobacco smoke exposure: No Do you dip or chew tobacco?: No Do you vape?: No Living arrangement: At home Level: Independent Do you feel safe in your home environment?: Yes History of physical, verbal, emotional, or financial abuse?: No ETOH Use: Beer Frequency: Occasional Substance Use: denies use POLST Patient has POLST: No Anesthesia Exam (Expanded) Exam General: Alert, Oriented x3 and Cooperative Dental: WNL Mouth Openin Fingerbreadth Neck Mobility: Normal Mallampati classification: II Thyromental Distance: 4-6 cm Respiratory: Lungs clear Cardiovascular: Regular rate Exam Exam Vital Signs: Vital Signs x48h Temp Pulse Resp BP Pulse Ox 11/19/24 04:40 37.0 C 66 16 127/81 95 Plan Problem List (1) Acute gallstone pancreatitis: Plan: - RUQ US ordered to evaluate gallbladder - Continue supportive care for pancreatitis - Continue to monitor lipase - Will plan for cholecystectomy before discharge - Rest of care per primary (2) Transaminitis: (3) Hyperglycemia: (4) Hypertension: Qualifiers: Hypertension type: unspecified Qualified Code(s): I10 - Essential (primary) hypertension Plan Anesthesia Type: General Consent for Procedure(s) Verified and Reviewed: Yes Code Status: Attempt Resuscitation ASA Classification ASA classification: 1-Healthy patient Is this case an emergency?: Yes
[2024-11-19] MEDS ORDERED: SUGAMMADEX 200 MG/2 ML VIAL IVP ONE (08:46)
[2024-11-19] MEDS ORDERED: PROPOFOL 200 MG/20 ML VIAL IVP ONE ×2 (08:47→09:43)
[2024-11-19] MEDS ORDERED: KETOROLAC 30 MG/ML VIAL ONE (08:47)
[2024-11-19] MEDS ORDERED: ONDANSETRON 4 MG/2 ML VIAL ONE (08:47)
[2024-11-19] MEDS ORDERED: DEXAMETHASONE 4 MG/ML VIAL ONE (08:47)
[2024-11-19] MEDS ORDERED: LIDOCAINE-PF 2% 10 ML AMP SUBQ ONE (08:47)
[2024-11-19] MEDS ORDERED: ROCURONIUM 50 MG/5 ML VIAL ONE (08:47)
[2024-11-19] MEDS: LACTATED RINGERS 1,000 ML IV SCH (10:01)
--- NOTE | 2024-11-19 10:19 | OPERATIVE REPORT ---
Operative Report General Admit Date: 11/18/24 Procedure Data: Operation Date: 11/19/24 08:00 Proposed Procedures p Laparoscopic Cholecystectomy, POSSIBLE OPEN, WITH IOC(Not Applicable) - Gibran Akhtar MD Actual Procedures p Laparoscopic Cholecystectomy(Not Applicable) - Gibran Akhtar MD Pre-Op Diagnosis: Gallstone, pancreatitis Anesthesia Type General Case Staff Anesthesia Provider: Pallavi Galarza Case Times Procedure Start: 11/19/24 08:29 Procedure End: 11/19/24 09:50 Time out: 11/19/24 08:27 Other Other Information/Narrative: PROCEDURE DATE: Laparoscopic cholecystectomy PREOPERATIVE DIAGNOSIS: Randy is a 64 year old male who has resolving pancreatitis likely due to gallstone disease. His lipase and LFT's have nearly completely normalized and I recommended cholecystectomy to prevent further episodes of choledocholithiasis. Randy is being taken to the operating room for laparoscopic cholecystectomy, possible open cholecystectomy, possible Intra- operative cholangiography. POSTOPERATIVE DIAGNOSIS: Gallstones; Extensive intra-abdominal adhesions from prior peritonitis due to ruptured appendicitis NAME OF PROCEDURE: Laparoscopic cholecystectomy SURGEON: Gibran Akhtar MD, FACS [employer] SURGEON: None ANESTHESIA: General endotracheal. ESTIMATED BLOOD LOSS: 10 mL. DRAINS: None SPECIMEN: Gallbladder COMPLICATIONS None FINDINGS: There was paucity of subcutaneous adipose tissue in the periumbilical region. The fascia was attenuated yet firm and represented diastasis of the rectus rather than an actual hernia. Entry into the abdominal cavity was uncomplicated but severe adhesive disease was present in all quadrants except the upper half of the RUQ. Only by carefully manipulating the endoscope through flimsy adhesions attached to the falciform ligament was I able to visualize the RUQ, lives and gallbladder. There was enough visible anterior abdominal wall to place the two 5 mm ports and the sub-xiphoid port in such a way as to permit me to proceed with the laparoscopic approach. I decided early in the case to abort the plan for an IOC due to the limited space in the RUQ to place an additional port for the image study. DESCRIPTION OF OPERATION FOLLOWS: After consent for the procedure was obtained, the patient was brought to the operating room where in the supine position, general endotracheal anesthesia was administered. A surgical time-out was performed indicating the patient and the procedure to be performed. The abdomen was prepped with alcohol-free chloroprep and draped in a sterile fashion. Pneumoperitoneum was achieved through a linear incision located right and lateral to the umbilicus. The attenuated linear alba was immediately identified and a Tayler cannula was placed into the abdominal cavity and secured to the abdominal wall with the balloon and 0-Vicryl sutures. Under direct vision, a 10 mm non-cutting laparoscopic port was placed in the sub-xiphoid region and two 5 mm noncutting ports were placed in the right upper quadrant; one in the mid- clavicular line and one in the anterior axillary line. Each of the port sites were infiltrated with 1% Lidocaine with epinephrine in a 50/50 mix with 1/4% Marcaine mixture prior making the incisions. The patient was placed in the steep reverse Trendelenburg position and rolled to the left. Inspection of the right upper quadrant revealed the above noted findings. Dense adhesions to the anterior aspect of the abdominal wall were transected and the gallbladder was grasped on the fundus and retracted superiorly and anteriorly. The neck of the gallbladder was identified. The neck was grasped and retracted laterally. The cystic duct was identified as it coursed from the gallbladder toward the common duct. The cystic artery with it's anterior and posterior branches was similarly identified. The critical view was achieved once the liver bed was visualized behind the cystic artery and cystic duct. Both cystic duct (3 clips) and cystic artery (3 clips) were clipped proximally and distally and transected. The gallbladder was then removed from the liver bed using electrocautery and brought out through the subxiphoid port using an endo-catch device. Reinspection of the right upper quadrant revealed no evidence of bleeding or bile leakage from the previous dissection site. The right upper quadrant was irrigated with warm sterile saline. The irrigant was aspirated. A search was made for sponges, packs, instruments, and needles. None were found. The sponge, pack, instrument, and needle counts were relayed to me as being correct. The sub-xiphoid port site was closed with a 0 Vicryl under direct vision using an endo-close device. The pneumoperitoneum then was released. There was no evidence of bleeding from the laparoscopic port sleeve sites upon release of the pneumoperitoneum. The subumbilical incision was closed with 0 Vicryl for the attenuated linea alba. The skin of each of the port sites was closed with interrupted 4-0 Monocryl in a subcuticular fashion with Steri-Strips to reinforce the epidermis. Dressings were placed. The patient tolerated the procedure well and was brought to the recovery room with stable vital signs.
[2024-11-19] MEDS ORDERED: SODIUM CHLORIDE FLUSH 0.9% 10 ML SYRINGE IVP PRN (10:44)
[2024-11-19] MEDS ORDERED: oxyCODONE 5 MG TABLET PO PRN (10:44)
[2024-11-19] MEDS: ACETAMINOPHEN 325 MG TABLET PO SCH (11:05)
--- NOTE | 2024-11-19 13:20 | Discharge Summary ---
"Discharge Summary Admit Date: 11/18/24 Discharge Date: 11/19/24 Discharging Provider: Eulogio Medina DO Primary Care Provider: Nahomy Vasquez Code Status: Attempt Resuscitation DIAGNOSES Discharge Diagnoses with Status of Each Condition: Gallstone pancreatitis, improved Cholecystitis, resolved Hyperglycemia, improved Hypertension, resolved HPI History of Present Illness: pt with intermitted abd pain + cramping + vomiting x 2 months. h/o open appendectomy d/t perforated appendicitis. pt was recently seen in er d/t pain and was diagnosed with gallstones with cholecystitis and given rx for norco + dicyclomine and told to f/u with pcp, who advised that pt will need to be seen by gi, which has not happened yet. pt started having worsening pain over last 3- 4 days, and last night he called nursing hotline with [facility], where he was able to speak with a doctor, who stated that he may be having a dislodging stone or infection and told to come to [facility]. pt has 2 sisters who have had cholesytectomies. he takes no other meds. no chest pain or sob. diet over last couple of months has been poor -- limited to soups and light foods. CONSULTS | PROCEDURES Consultations: General surgery Procedures: Laparoscopic cholecystectomy completed 11/19 CT abdomen pelvis completed 11/18 HOSPITAL COURSE Hospital Course: This is a 64-year-old gentleman who was admitted with gallstone pancreatitis. He has a known history of symptomatic cholelithiasis and was found mild cholecystitis in the ED several days prior to admission. He was sent home with instruction to come back for elective cholecystectomy. Unfortunately in the interval, he developed worsened abdominal pain and was found to have pancreatitis. He was initially resuscitated with IV fluids, [id number] then 150. He had excellent recovery. His abdominal pain was all but resolved by the afternoon in the evening of hospital day 1. He was able to tolerate a relatively normal diet though he ate scant amounts. His lipase improved dramatically on hospital day 1 trending from 5600 to 500. With improving vital signs, he was planned for cholecystectomy on 11/19. This was completed laparoscopically and uneventfully on the morning of 11/19. Postoperatively, I saw Amrit this afternoon, he is recovering well. He has no pain. He is still on IV fluids at this time postoperatively. He is tolerating oral foods, though he only ate a small amount. He is ambulating, his pain is controlled, and he is passing gas, he is medically stable to leave. Discussed with the surgeon, who agrees. Follow-up with general surgery In 1 to 2 weeks for postoperative evaluation I suspect his postoperative course will be unremarkable, given his hepatic duct was not dilated, no evidence of stones in the duct intraoperatively or on imaging. However it is notable that they were unable to perform an IOC during his cholecystectomy. His rapid improvement in lipase and stable liver enzymes are all suggestive that he does not have a latent stone. However if he has recurrent symptoms, he will likely need MRCP and consideration for ERCP. Notably had some hyperglycemia and hypertension on initial presentation, suspect both of these were stress responses to his acute illness. They have resolved by the day of discharge. ALLERGIES Allergies Allergy/AdvReac Type Severity Reaction Status Date / Time No Known Drug Allergies Allergy Verified 11/18/24 00:51 MEDICATIONS Ambulatory Orders Medication Instructions Recorded Confirmed hydrocodone 5 mg-acetaminophen 325 1 tab PO Q6H PRN pa in #10 tabs 11/05/24 11/18/24 mg tablet acetaminophen 325 mg tablet 650 mg (2 x 325 mg) PO Q6H #0 tabs 11/19/24 ibuprofen 400 mg tablet 400 mg PO Q6HR PRN Pain Or F ever > 11/19/24 38c (100.4f) #0 tabs PHYSICAL EXAM AT DISCHARGE Vital Signs: Vital Signs x48h Temp Pulse Resp BP Pulse Ox 11/19/24 14:20 36.9 C 67 16 123/72 95 11/19/24 12:55 37.1 C 67 16 134/76 H 94 11/19/24 11:25 37.0 C 72 18 130/78 96 GEN: No acute distress HEENT: NC/AT, normal appearance of external ears and nose. Hearing baseline. Cardiac: Regular rate and rhythm, no murmurs. Pulm: Lungs CTA bilaterally, no cough, no wheezes. Abdomen: Soft, nontender, nondistended. Laparoscopic incisions well- approximated, no surrounding erythema. Extremities: Moves all 4 extremities equally. Normal tone. Neuro: Face symmetric, CN II through XII intact grossly. Psych: Mood euthymic with congruent affect. LABS 11/18/24 05:04 11/19/24 05:25 DIAGNOSTIC IMAGING Diagnostic Imaging Results: Final report reviewed Diagnostic Imaging Results Comments: CT abdomen pelvis from 11/18 reveals acute interstitial edematous pancreatitis with small volume of free fluid near the head and neck of the pancreas. Associated duodenitis. No biliary or pancreatic ductal dilation was seen on CT. Gallstones were present in the gallbladder. Abdominal ultrasound following CT on 11/18 reveals cholelithiasis with no biliary ductal dilation seen there. Pancreas was obscured by bowel gas on that study. FOLLOW UP Follow Up: Will need follow-up with [facility] general surgery, in 1 to 2 weeks for postoperative evaluation. TIME SPENT Time Spent in Discharge (Minutes): 36 Discharge Plan Discharge Patient Disposition: Home, Self Care Condition: Stable Medically Cleared Date:: 11/19/24 Prescriptions: New acetaminophen 325 mg Tablet 650 mg PO Q6H Qty: 0 0RF ibuprofen 400 mg Tablet 400 mg PO Q6HR PRN (Reason: Pain Or Fever > 38c (100.4f)) Qty: 0 0RF Continued hydrocodone-acetaminophen 5-325 mg tablet 1 tab PO Q6H PRN (Reason: pain) Qty: 10 0RF Discontinued dicyclomine 10 mg capsule 10 mg PO QID PRN (Reason: abdominal pain) Qty: 10 0RF Activity Restrictions: No Restrictions Diet: Regular Health Concerns: You were admitted with inflammation of your pancreas which was caused by a gallstone that had obstructing the pancreatic duct. This caused inflammation in your pancreas and abdominal pain, nausea and vomiting. Treatment for this was IV fluids and pain control. Your pain is improved, and you are now tolerating oral diet. In order to prevent future attacks, your gallbladder was removed. The surgery was done on the day of discharge. In order to continue to get better, please slowly advance her diet, you need calories to heal from your surgery. Please continue to wear your abdominal binder. Do not scrub at your surgical incisions. Do not shower today. You can start showering 11/20. In order to manage your pain, you can use Tylenol and ibuprofen as needed over the next couple of days. For more severe pain you do have some [place] at home. Please be cautious to not take more than 3 g of Tylenol (6 extra strength or 10 regular strength Tylenol) while you are taking the [place]. More than 4 g total of acetaminophen in a day can be toxic to your liver. Follow-up with the general surgeons for postop visit. I expect your symptoms to continue to improve though you may have some pain postoperatively related to your surgery. Print Language: French Patient Instructions: Surg Dc [facility] [Outside] Referral Note: Follow-up in the next 1-2 weeks for post-op Problems: Acute gallstone pancreatitis Nahomy Vasquez MD [Primary Care Provider, Family Practice] Vitals documented within 30 minutes of discharge?: Yes (Yes)"
[2024-11-19 14:54] VITALS: BP 123/72; TEMP 98.4; O2SAT 95
[2024-11-19] MEDS ORDERED: SODIUM CHLORIDE FLUSH 0.9% 10 ML SYRINGE IVP SCH (17:00)
--- OUTSIDE RECORDS SUMMARY | 2024-11-22 18:26 | EXTERNAL MEDICAL SUMMARY RPT | Continuity of Care Document ---
Author Organization [facility] Address [address] [place] [id number] Phone Problems date description facility 2024-11-05 08:22 Disease of gallbladder, [facility]speci fied [facility]24-11-05 08:22 Upper [facility], [facility]specifi ed [facility] 2024-11-07 09:00 Disease of gallbladder, unspeci fied [facility] 2024-11-07 09:00 Upper abdominal pain, unspecifi ed [facility] 2024-11-08 13:12 Disease of gallbladder, unspeci fied [facility] 2024-11-08 13:12 Upper abdominal pain, unspecifi ed [facility] 2024-11-08 13:12 Epigastric pain [facility] 2024-11-18 03:07 Biliary acute pancre atitis without necrosis or infection [facility] 2024-11-18 04:53 Biliary acute pancre atitis without necrosis or infection [facility] 2024-11-18 06:57 Biliary acute pancre atitis without necrosis or infection [facility] 2024-11-18 09:09 Biliary acute pancre atitis without necrosis or infection [facility] 2024-11-18 12:57 Biliary acute pancre atitis without necrosis or infection [facility] 2024-11-19 12:52 Essential (primary) hypertensio n [facility] 2024-11-19 12:52 Biliary acute pancre atitis without necrosis or infection [facility] 2024-11-19 12:52 Hyperglycemia, unspecified [facility] 2024-11-19 12:52 Elevation of levels of liver tr ansaminase levels [facility] 2024-11-19 13:20 Essential (primary) hypertensio n [facility] 2024-11-19 13:20 Biliary acute pancre atitis without necrosis or infection [facility] 2024-11-19 13:20 Hyperglycemia, unspecified [facility] 2024-11-19 13:20 Elevation of levels of liver tr ansaminase levels [facility] 2024-11-19 14:10 Essential (primary) hypertensio n [facility] 2024-11-19 14:10 Biliary acute pancre atitis without necrosis or infection [facility] 2024-11-19 14:10 Hyperglycemia, unspecified [facility] 2024-11-19 14:10 Elevation of levels of liver tr ansaminase levels [facility] 2024-11-19 14:16 Essential (primary) hypertensio n [facility] 2024-11-19 14:16 Biliary acute pancre atitis without necrosis or infection [facility] 2024-11-19 14:16 Hyperglycemia, unspecified [facility] 2024-11-19 14:16 Elevation of levels of liver tr ansaminase levels [facility] 2024-11-19 14:17 Essential (primary) hypertensio n [facility] 2024-11-19 14:17 Biliary acute pancre atitis without necrosis or infection [facility] 2024-11-19 14:17 Hyperglycemia, unspecified [facility] 2024-11-19 14:17 Elevation of levels of liver tr ansaminase levels [facility] 2024-11-19 14:55 Essential (primary) hypertensio [facility] 2024-11-19 14:55 Biliary acute pancre atitis without necrosis or infection [facility] 2024-11-19 14:55 Hyperglycemia, unspecified [facility] 2024-11-19 14:55 Elevation of levels of liver tr ansaminase levels [facility] Results/Labs test date facility value unit notes Result panel 1 NUCLEATED RED BLOOD CELLS AUTO 2024-11-05 04:23 [facility] 0.0 /100wbc (missing) BASOPHILS # (AUTO) 2024-11-05 04:23 [facility] 0.0 10 3/ul (missing) NRBC ABSOLUTE COUNT (AUTO) 2024-11-05 04:23 [facility] 0.00 x10 3/ul (missing) EOSINOPHILS # (AUTO) 2024-11-05 04:23 [facility] 0.1 10 3/ul (missing) MONOCYTES # (AUTO) 2024-11-05 04:23 [facility] 0.3 10 3/ul (missing) BILIRUBIN,TOTAL 2024-11-05 04:23 [facility] 0.4 mg/dl As of August 2022 testing method has changed, this may include reference ranges. CREATININE 2024-11-05 04:23 [facility] 0.8 mg/dl As of August 2022 testing method has changed, this may include reference ranges. LYMPHOCYTES # (AUTO) 2024-11-05 04:23 [facility] 1.4 10 3/ul (missing) ALBUMIN/GLOBULIN RATIO 2024-11-05 04:23 [facility] 1.8 (missing) (missing) CHLORIDE 2024-11-05 04:23 [facility] 104 mmol/l As of August 2022 testing method has changed, this may include reference ranges. RED CELL DISTRIBUTION WIDTH 2024-11-05 04:23 [facility] 12.8 % (missing) BUN - BLOOD UREA NITROGEN 2024-11-05 04:23 [facility] 13 mg/dl As of August 2022 testing method has changed, this may include reference ranges. LIPASE 2024-11-05 04:23 [facility] 13 u/l As of August 2022 testing method has changed, this may include reference ranges. GLUCOSE 2024-11-05 04:23 [facility] 132 mg/dl As of August 2022 testing method has changed, this may include reference ranges. SODIUM 2024-11-05 04:23 [facility] 136 mmol/l (missing) LIPASE 2024-11-05 04:23 [facility] 14 u/l As of August 2022 testing method has changed, this may include reference ranges. HGB - HEMOGLOBIN 2024-11-05 04:23 [facility] 14.7 g/dl (missing) AST ASPARTATE AMINOTRANSFERASE 2024-11-05 04:23 [facility] 18 iu/l As of August 2022 testing method has changed, this may include reference ranges. GLOBULIN 2024-11-05 04:23 [facility] 2.5 g/dl (missing) PLT - PLATELET COUNT 2024-11-05 04:23 [facility] 219 10 3/ul (missing) CARBON DIOXIDE - CO2 2024-11-05 04: [facility] 24 mmol/l As of August 2022 testing method has changed, this may include reference ranges. ALT ALANINE AMINOTRANSFERASE 2024-11-05 04: [facility] 27 iu/l As of August 2022 testing method has changed, this may include reference ranges. NEUTROPHILS # (AUTO) 2024-11-05 04: [facility] 3.5 10 3/ul (missing) POTASSIUM 2024-11-05 04: [facility] 3.8 mmol/l As of August 2022 testing method has changed, this may include reference ranges. MEAN CORPUSCULAR HEMOGLOBIN 2024-11-05 04: [facility] 31.5 pg (missing) MEAN CORPUSCULAR HGB CONC 2024-11-05 04: [facility] 34.1 g/dl (missing) ALBUMIN 2024-11-05 04: [facility] 4.4 g/dl As of August 2022 testing method has changed, this may include reference ranges. RED BLOOD COUNT 2024-11-05 04: [facility] 4.66 10 6/ul (missing) TROPONIN I HIGH SENSITIVITY 2024-11-05 04: [facility] 4.8 ng/l A HIGH SENSITIVITY TROPONIN result of >= 14.9 ng/L for females is considered POSITIVE. A HIGH SENSITIVITY TROPONIN result of >= 19.8 ng/L for males is considered POSITIVE. A HIGH SENSITIVITY TROPONIN result of >= 17.9 ng/L for unspecified is considered POSITIVE. HCT - HEMATOCRIT 2024-11-05 04: [facility] 43.1 % (missing) WHITE BLOOD COUNT 2024-11-05: [facility] 5.4 x10 3/ul (missing) TOTAL PROTEIN 2024-11-05: [facility] 6.9 g/dl As of August 2022 testing method has changed, this may include reference ranges. ANION GAP 2024-11-05: [facility] 8.0 (missing) (missing) CALCIUM 2024-11-05: [facility] 8.9 mg/dl As of August 2022 testing method has changed, this may include reference ranges. MEAN PLATELET VOLUME 2024-11-05 04:23 [facility] 9.4 fl (missing) MEAN CORPUSCULAR VOLUME 2024-11-05 04:23 [facility] 92.5 fl (missing) ALKALINE PHOSPHATASE 2024-11-05 04:23 [facility] 93 iu/l As of August 2022 testing method has changed, this may include reference ranges. GFR - MDRD 2024-11-05 04:23 [facility] 97 (missing) The IDMS-traceable MDRD Study Equation has been validated extensively in and populations between the ages of 18 and 70 with impaired kidney function (eGFR < 60 mL/min/1.73m2) and has shown good performance for patients with all common causes of kidney disease. Although this equation has not been validated for patients older than 70, an MDRD-derived eGFR may still be a useful tool for providers caring for patients older than 70. References: http://www.nkdep. nih.gov/lab-evalu ation/gfr/creatin ine-stand ardization, last updated April 2011. Result panel 2 NUCLEATED RED BLOOD CELLS AUTO 2024-11-18 01:11 [facility] 0.0 /100wbc (missing) BASOPHILS # (AUTO) 2024-11-18 01:11 [facility] 0.0 10 3/ul (missing) EOSINOPHILS # (AUTO) 2024-11-18 01:11 [facility] 0.0 10 3/ul (missing) NRBC ABSOLUTE COUNT (AUTO) 2024-11-18 01:11 [facility] 0.00 x10 3/ul (missing) MONOCYTES # (AUTO) 2024-11-18 01:11 [facility] 0.4 10 3/ul (missing) LYMPHOCYTES # (AUTO) 2024-11-18 01:11 [facility] 0.9 10 3/ul (missing) BILIRUBIN,TOTAL 2024-11-18 01:11 [facility] 1.0 mg/dl As of August 2022 testing method has changed, this may include reference ranges. CREATININE 2024-11-18 01:11 [facility] 1.0 mg/dl As of August 2022 testing method has changed, this may include reference ranges. ALBUMIN/GLOBULIN RATIO 2024-11-18 01:11 [facility] 1.7 (missing) (missing) ESTIMATED AVERAGE GLUCOSE 2024-11-18 01:11 [facility] 105 mg/dl (missing) CHLORIDE 2024-11-18 01:11 [facility] 105 mmol/l As of August 2022 testing method has changed, this may include reference ranges. RED CELL DISTRIBUTION WIDTH 2024-11-18 01:11 [facility] 12.9 % (missing) LDL CHOLESTEROL,CALCULATED 2024-11-18 01:11 [facility] 125 mg/dl LDLD REFERENCE RANGE AND CARDIOVASCULAR RISK: <130 mg/dL Desirable 130-159 mg/dL Borderline High Risk >160 mg/dL High Risk ALKALINE PHOSPHATASE 2024-11-18 01:11 [facility] 129 iu/l As of August 2022 testing method has changed, this may include reference ranges. SODIUM 2024-11-18 01:11 [facility] 138 mmol/l (missing) TRIGLYCERIDES 2024-11-18 01:11 [facility] 146 mg/dl No Triglyceride Risk Classification <150 mg/dL Normal 150-199 mg/dL Borderline High 200-499 mg/dL High >500 mg/dL Very High As of August 2022 testing method has changed, this may include reference ranges. HGB - HEMOGLOBIN 2024-11-18 01:11 [facility] 15.0 g/dl (missing) GLUCOSE 2024-11-18 01:11 [facility] 169 mg/dl As of August 2022 testing method has changed, this may include reference ranges. AST ASPARTATE AMINOTRANSFERASE 2024-11-18 01:11 [facility] 172 iu/l As of August 2022 testing method has changed, this may include reference ranges. BUN - BLOOD UREA NITROGEN 2024-11-18 01:11 [facility] 18 mg/dl As of August 2022 testing method has changed, this may include reference ranges. CHOLESTEROL 2024-11-18 01:11 [facility] 199 mg/dl Total Cholesterol Risk Classification Cholesterol Level Risk Classification <200 mg/dL Desirable 200-239 mg/dL Borderline High >240 mg/dL High As of August 2022 testing method has changed, this may include reference ranges. THYROID STIMULATING HORMONE 2024-11-18 01:11 [facility] 2.19 uiu/ml (missing) GLOBULIN 2024-11-18 01:11 [facility] 2.7 g/dl (missing) LDL/HDL RATIO 2024-11-18 01:11 [facility] 2.8 (missing) (missing) PLT - PLATELET COUNT 2024-11-18 01:11 [facility] 220 10 3/ul (missing) ALT ALANINE AMINOTRANSFERASE 2024-11-18 01:11 [facility] 247 iu/l As of August 2022 testing method has changed, this may include reference ranges. CARBON DIOXIDE - CO2 2024-11-18 01:11 [facility] 26 mmol/l As of August 2022 testing method has changed, this may include reference ranges. VLDL CHOLESTEROL 2024-11-18 01:11 [facility] 29 mg/dl (missing) POTASSIUM 2024-11-18 01:11 [facility] 3.9 mmol/l As of August 2022 testing method has changed, this may include reference ranges. MEAN CORPUSCULAR HEMOGLOBIN 2024-11-18 01:11 [facility] 31.0 pg (missing) MEAN CORPUSCULAR HGB CONC 2024-11-18 01:11 [facility] 33.0 g/dl (missing) CHOL/HDL RATIO 2024-11-18 01:11 [facility] 4.4 (missing) NATIONAL CHOLESTEROL GUIDELINE [facility] ([facility]) guidelines for classificaton, testing and management of cholesterol levels in adults over 20 years of age. This new classification creates three categories of risk for coronary heart disease, regardless of age or sex, according to total amd LDL cholesterols levels: Based on total cholesterol level Desirable <200 mg/dl Borderline-high 200-239 mg/dl High >=240 mg/dl Based on cholesterol ratio CHD RISK CHOL/HDL RATIO --- MALE FEMALE 0.5 x Average 3.4 3.3 1.0 x Average 5.0 4.4 2.0 x Average 9.6 7.1 3.0 x Average 13.5 11.0 ALBUMIN 2024-11-18 01:11 [facility] 4.5 g/dl As of August 2022 testing method has changed, this may include reference ranges. RED BLOOD COUNT 2024-11-18 01:11 [facility] 4.84 10 6/ul (missing) HDL CHOLESTEROL 2024-11-18 01:11 [facility] 45 mg/dl Coronary Heart Disease Risk Classification HDL Level Risk factor < 40 mg/dL major risk > 60 mg/dL negative risk As of August 2022 testing method has changed, this may include reference ranges. HCT - HEMATOCRIT 2024-11-18 01:11 [facility] 45.4 % (missing) HEMOGLOBIN A1c% 2024-11-18 01:11 [facility] 5.3 % The [place] [employer] (ADA) has made the following recommendations: Monitoring HbA1c in Diabetic Patients: A1c (NGSP%) Goal <8 Less Stringent Goal <7 General Goal <6.5 More Stringent Goal Diagnosis of Diabetes: A1c (NGSP%) Goal >6.5 Diabetic 5.7-6.4 Pre-Diabetic <5.7 Non-Diabetic LIPASE 2024-11-18 01:11 [facility] 5978 u/l As of August 2022 testing method has changed, this may include reference ranges. ANION GAP 2024-11-18 01:11 [facility] 7.0 (missing) (missing) TOTAL PROTEIN 2024-11-18 01:11 [facility] 7.2 g/dl As of August 2022 testing method has changed, this may include reference ranges. GFR - MDRD 2024-11-18 01:11 [facility] 75 (missing) The IDMS-traceable MDRD Study Equation has been validated extensively in and populations between the ages of 18 and 70 with impaired kidney function (eGFR < 60 mL/min/1.73m2) and has shown good performance for patients with all common causes of kidney disease. Although this equation has not been validated for patients older than 70, an MDRD-derived eGFR may still be a useful tool for providers caring for patients older than 70. References: http://www.nkdep.ni h.gov/lab-evaluatio n/gfr/creatinine-st and ardization, last updated April 2011. NEUTROPHILS # (AUTO) 2024-11-18 01:11 [facility] 8.3 10 3/ul (missing) CALCIUM 2024-11-18 01:11 [facility] 9.1 mg/dl As of August 2022 testing method has changed, this may include reference ranges. MEAN PLATELET VOLUME 2024-11-18 01:11 [facility] 9.5 fl (missing) WHITE BLOOD COUNT 2024-11-18 01:11 [facility] 9.7 x10 3/ul (missing) MEAN CORPUSCULAR VOLUME 2024-11-18 01:11 [facility] 93.8 fl (missing) Result panel 3 WBC,URINE 2024-11-18 01:34 [facility] 0-3 /hpf (missing) RBC,URINE 2024-11-18 01:34 [facility] 0-5 /hpf (missing) UROBILINOGEN,URIN E 2024-11-18 01:34 [facility] 0.2 (NORMAL) e.u./dl (missing) SPECIFIC GRAVITY,URINE 2024-11-18 01:34 [facility] 1.020 (missing) (missing) PH,URINE 2024-11-18 01:34 [facility] 5.0 ph (missing) CLARITY,URINE 2024-11-18 01:34 [facility] CLEAR (missing) (missing) COLOR,URINE 2024-11-18 01:34 [facility] DARK YELLOW (missing) URINE CLEAN CATCH URINE MICROSCOPIC INDICATED? 2024-11-18 01:34 [facility] INDICATED (missing) (missing) LEUKOCYTE ESTERASE, URINE 2024-11-18 01:34 [facility] NEGATIVE (missing) (missing) NITRITE,URINE 2024-11-18 01:34 [facility] NEGATIVE (missing) (missing) BILIRUBIN,URINE 2024-11-18 01:34 [facility] NEGATIVE (missing) Bilirubin can be influenced by color interference. Please correlate positive results with clinical presentation GLUCOSE, URINE (UA) 2024-11-18 01:34 [facility] NEGATIVE mg/dl (missing) KETONES,URINE (UA) 2024-11-18 01:34 [facility] NEGATIVE mg/dl (missing) UR CULTURE IF IND 2024-11-18 01:34 [facility] NOT INDICATED (missing) (missing) BACTERIA,URINE 2024-11-18 01:34 [facility] None Seen /hpf (missing) SQUAMOUS EPITHELIAL CELL,UR 2024-11-18 01:34 [facility] RARE Squamous (missing) (missing) OCCULT BLOOD,URINE 2024-11-18 01:34 [facility] TRACE (missing) (missing) PROTEIN,URINE 2024-11-18 01:34 [facility] TRACE mg/dl (missing) Result panel 4 NUCLEATED RED BLOOD CELLS AUTO 2024-11-18 05:04 [facility] 0.0 /100wbc (missing) BASOPHILS # (AUTO) 2024-11-18 05:04 [facility] 0.0 10 3/ul (missing) EOSINOPHILS # (AUTO) 2024-11-18 05:04 [facility] 0.0 10 3/ul (missing) NRBC ABSOLUTE COUNT (AUTO) 2024-11-18 05:04 [facility] 0.00 x10 3/ul (missing) MONOCYTES # (AUTO) 2024-11-18 05:04 [facility] 0.4 10 3/ul (missing) BILIRUBIN,TOTAL 2024-11-18 05:04 [facility] 0.8 mg/dl As of August 2022 testing method has changed, this may include reference ranges. CREATININE 2024-11-18 05:04 [facility] 0.9 mg/dl As of August 2022 testing method has changed, this may include reference ranges. LYMPHOCYTES # (AUTO) 2024-11-18 05:04 [facility] 1.0 10 3/ul (missing) ALBUMIN/GLOBULIN RATIO 2024-11-18 05:04 [facility] 1.9 (missing) (missing) MEAN PLATELET VOLUME 2024-11-18 05:04 [facility] 10.1 fl (missing) CHLORIDE 2024-11-18 05:04 [facility] 108 mmol/l As of August 2022 testing method has changed, this may include reference ranges. ALKALINE PHOSPHATASE 2024-11-18 05:04 [facility] 113 iu/l As of August 2022 testing method has changed, this may include reference ranges. GLUCOSE 2024-11-18 05:04 [facility] 117 mg/dl As of August 2022 testing method has changed, this may include reference ranges. AST ASPARTATE AMINOTRANSFERASE 2024-11-18 05:04 [facility] 118 iu/l As of August 2022 testing method has changed, this may include reference ranges. RED CELL DISTRIBUTION WIDTH 2024-11-18 05:04 [facility] 13.0 % (missing) HGB - HEMOGLOBIN 2024-11-18 05:04 [facility] 13.4 g/dl (missing) SODIUM 2024-11-18 05:04 [facility] 138 mmol/l (missing) BUN - BLOOD UREA NITROGEN 2024-11-18 05:04 [facility] 14 mg/dl As of August 2022 testing method has changed, this may include reference ranges. MAGNESIUM 2024-11-18 05:04 [facility] 2.0 mg/dl As of August 2022 testing method has changed, this may include reference ranges. GLOBULIN 2024-11-18 05:04 [facility] 2.2 g/dl (missing) PLT - PLATELET COUNT 2024-11-18 05:04 [facility] 208 10 3/ul (missing) ALT ALANINE AMINOTRANSFERASE 2024-11-18 05:04 [facility] 208 iu/l As of August 2022 testing method has changed, this may include reference ranges. CARBON DIOXIDE - CO2 2024-11-18 05:04 [facility] 26 mmol/l As of August 2022 testing method has changed, this may include reference ranges. MEAN CORPUSCULAR HEMOGLOBIN 2024-11-18 05:04 [facility] 31.6 pg (missing) MEAN CORPUSCULAR HGB CONC 2024-11-18 05:04 [facility] 33.6 g/dl (missing) HCT - HEMATOCRIT 2024-11-18 05:04 [facility] 39.9 % (missing) ANION GAP 2024-11-18 05:04 [facility] 4.0 (missing) (missing) ALBUMIN 2024-11-18 05:04 [facility] 4.2 g/dl As of August 2022 testing method has changed, this may include reference ranges. POTASSIUM 2024-11-18 05:04 [facility] 4.2 mmol/l As of August 2022 testing method has changed, this may include reference ranges. RED BLOOD COUNT 2024-11-18 05:04 [facility] 4.24 10 6/ul (missing) NEUTROPHILS # (AUTO) 2024-11-18 05:04 [facility] 6.0 10 3/ul (missing) TOTAL PROTEIN 2024-11-18 05:04 [facility] 6.4 g/dl As of August 2022 testing method has changed, this may include reference ranges. WHITE BLOOD COUNT 2024-11-18 05:04 [facility] 7.4 x10 3/ul (missing) CALCIUM 2024-11-18 05:04 [facility] 8.3 mg/dl As of August 2022 testing method has changed, this may include reference ranges. GFR - MDRD 2024-11-18 05:04 [facility] 85 (missing) The IDMS-traceable MDRD Study Equation has been validated extensively in and populations between the ages of 18 and 70 with impaired kidney function (eGFR < 60 mL/min/1.73m2) and has shown good performance for patients with all common causes of kidney disease. Although this equation has not been validated for patients older than 70, an MDRD-derived eGFR may still be a useful tool for providers caring for patients older than 70. References: http://www.nkdep. nih.gov/lab-evalu ation/gfr/creatin ine-stand ardization, last updated April 2011. MEAN CORPUSCULAR VOLUME 2024-11-18 05:04 [facility] 94.1 fl (missing) Result panel 5 LIPASE 2024-11-18 18:49 [facility] 488 u/l As of August 2022 testing method has changed, this may include reference ranges. Result panel 6 CREATININE 2024-11-19 05:25 [facility] 1.0 mg/dl As of August 2022 testing method has changed, this may include reference ranges. BILIRUBIN,TOTAL 2024-11-19 05:25 [facility] 1.2 mg /dl As of August 2022 testing method has changed, this may include reference ranges. ALBUMIN/GLOBULIN RATIO 2024-11-19 05:25 [facility] 1.9 (missing) (missing) GLUCOSE 2024-11-19 05:25 [facility] 102 mg/dl As of August 2022 testing method has changed, this may include reference ranges. CHLORIDE 2024-11-19 05:25 [facility] 106 mmol/l As of August 2022 testing method has changed, this may include reference ranges. ALKALINE PHOSPHATASE 2024-11-19 05:25 [facility] 108 iu/l As of August 2022 testing method has changed, this may include reference ranges. ALT ALANINE AMINOTRANSFERASE 2024-11-19 05:25 [facility] 131 iu/l As of August 2022 testing method has changed, this may include reference ranges. SODIUM 2024-11-19 05:25 [facility] 139 mmol/l (missing) GLOBULIN 2024-11-19 05:25 [facility] 2.1 g/dl (missing) CARBON DIOXIDE - CO2 2024-11-19 05:25 [facility] 28 mmol/l As of August 2022 testing method has changed, this may include reference ranges. POTASSIUM 2024-11-19 05:25 [facility] 3.8 mmol/l As of August 2022 testing method has changed, this may include reference ranges. ALBUMIN 2024-11-19 05:25 [facility] 3.9 g/dl As of August 2022 testing method has changed, this may include reference ranges. AST ASPARTATE AMINOTRANSFERASE 2024-11-19 05:25 [facility] 41 iu/l As of August 2022 testing method has changed, this may include reference ranges. ANION GAP 2024-11-19 05:25 [facility] 5.0 (missing ) (missing) TOTAL PROTEIN 2024-11-19 05:25 [facility] 6.0 g/dl As of August 2022 testing method has changed, this may include reference ranges. GFR - MDRD 2024-11-19 05:25 [facility] 75 (elsa hayes) The IDMS-traceable MDRD Study Equation has been validated extensively in and populations between the ages of 18 and 70 with impaired kidney function (eGFR < 60 mL/min/1.73m2) and has shown good performance for patients with all common causes of kidney disease. Although this equation has not been validated for patients older than 70, an MDRD-derived eGFR may still be a useful tool for providers caring for patients older than 70. References: http://www.nkdep. nih.gov/lab-evalu ation/gfr/creatin ine-stand ardization, last updated April 2011. BUN - BLOOD UREA NITROGEN 2024-11-19 05:25 [employer] 8 mg/dl As of Aug testing method has changed, this may include reference ranges. CALCIUM 2024-11-19 05:25 [employer] 8.8 mg/dl As of August 2022 testing method has changed, this may include reference ranges. Social History date description facility
--- OUTSIDE RECORDS SUMMARY | 2024-11-22 18:27 | EXTERNAL MEDICAL SUMMARY RPT | Continuity of Care Document ---
Author Organization [place] Address [address] [place] [id number] Phone Problems date description facility 2024-11-05 08:22 Disease of gallbladder, [facility]speci [facility]24-11-05 08:22 Upper abdominal [facility], [facility]specifi ed [facility] 2024-11-07 09:00 Disease of gallbladder, unspeci fied [facility] 2024-11-07 09:00 Upper abdominal pain, unspecifi ed [facility] 2024-11-08 13:12 Disease of gallbladder, unspeci fied [facility] 2024-11-08 13:12 Upper abdominal pain, unspecifi ed [facility] 2024-11-08 13:12 Epigastric pain [facility] 2024-11-18 03:07 Biliary acute pancre atitis without necrosis or infection [facility] 2024-11-18 04:53 Biliary acute pancre atitis without necrosis or infection [facility] 2024-11-18 06:57 Biliary acute pancre atitis without necrosis or infection [facility] 2024-11-18 09:09 Biliary acute pancre atitis without necrosis or infection [facility] 2024-11-18 12:57 Biliary acute pancre atitis without necrosis or infection [facility] 2024-11-19 12:52 Essential (primary) hypertensio n [facility] 2024-11-19 12:52 Biliary acute pancre atitis without necrosis or infection [facility] 2024-11-19 12:52 Hyperglycemia, unspecified [facility] 2024-11-19 12:52 Elevation of levels of liver tr ansaminase levels [facility] 2024-11-19 13:20 Essential (primary) hypertensio n [facility] 2024-11-19 13:20 Biliary acute pancre atitis without necrosis or infection [facility] 2024-11-19 13:20 Hyperglycemia, unspecified [facility] 2024-11-19 13:20 Elevation of levels of liver tr ansaminase levels [facility] 2024-11-19 14:10 Essential (primary) hypertensio n [facility] 2024-11-19 14:10 Biliary acute pancre atitis without necrosis or infection [facility] 2024-11-19 14:10 Hyperglycemia, unspecified [facility] 2024-11-19 14:10 Elevation of levels of liver tr ansaminase levels [facility] 2024-11-19 14:16 Essential (primary) hypertensio n [facility] 2024-11-19 14:16 Biliary acute pancre atitis without necrosis or infection [facility] 2024-11-19 14:16 Hyperglycemia, unspecified [facility] 2024-11-19 14:16 Elevation of levels of liver tr ansaminase levels [facility] 2024-11-19 14:17 Essential (primary) hypertensio n [facility] 2024-11-19 14:17 Biliary acute pancre atitis without necrosis or infection [facility] 2024-11-19 14:17 Hyperglycemia, unspecified [facility] 2024-11-19 14:17 Elevation of levels of liver tr ansaminase levels [facility] 2024-11-19 14:55 Essential (primary) hypertensio [facility] 2024-11-19 14:55 Biliary acute pancre atitis without necrosis or infection [facility] 2024-11-19 14:55 Hyperglycemia, unspecified [facility] 2024-11-19 14:55 Elevation of levels of liver tr ansaminase levels [facility] Results/Labs test date facility value unit notes Result panel 1 NUCLEATED RED BLOOD CELLS AUTO 2024-11-05 04:23 [facility] 0.0 /100wbc (missing) BASOPHILS # (AUTO) 2024-11-05 04:23 [facility] 0.0 10 3/ul (missing) NRBC ABSOLUTE COUNT (AUTO) 2024-11-05 04:23 [facility] 0.00 x10 3/ul (missing) EOSINOPHILS # (AUTO) 2024-11-05 04:23 [facility] 0.1 10 3/ul (missing) MONOCYTES # (AUTO) 2024-11-05 04:23 [facility] 0.3 10 3/ul (missing) BILIRUBIN,TOTAL 2024-11-05 04:23 [facility] 0.4 mg/dl As of August 2022 testing method has changed, this may include reference ranges. CREATININE 2024-11-05 04:23 [facility] 0.8 mg/dl As of August 2022 testing method has changed, this may include reference ranges. LYMPHOCYTES # (AUTO) 2024-11-05 04:23 [facility] [employer] 1.4 10 3/ul (missing) ALBUMIN/GLOBULIN RATIO 2024-11-05 04:23 [facility] 1.8 (missing) (missing) CHLORIDE 2024-11-05 04:23 [facility] 104 mmol/l As of August 2022 testing method has changed, this may include reference ranges. RED CELL DISTRIBUTION WIDTH 2024-11-05 04:23 [facility] 12.8 % (missing) BUN - BLOOD UREA NITROGEN 2024-11-05 04:23 [facility] 13 mg/dl As of August 2022 testing method has changed, this may include reference ranges. LIPASE 2024-11-05 04:23 [facility] 13 u/l As of August 2022 testing method has changed, this may include reference ranges. GLUCOSE 2024-11-05 04:23 [facility] 132 mg/dl As of August 2022 testing method has changed, this may include reference ranges. SODIUM 2024-11-05 04:23 [facility] 136 mmol/l (missing) LIPASE 2024-11-05 04:23 [facility] 14 u/l As of August 2022 testing method has changed, this may include reference ranges. HGB - HEMOGLOBIN 2024-11-05 04:23 [facility] 14.7 g/dl (missing) AST ASPARTATE AMINOTRANSFERASE 2024-11-05 04:23 [facility] 18 iu/l As of August 2022 testing method has changed, this may include reference ranges. GLOBULIN 2024-11-05 04:23 [facility] 2.5 g/dl (missing) PLT - PLATELET COUNT 2024-11-05 04:23 [facility] 219 10 3/ul (missing) CARBON DIOXIDE - CO2 2024-11-05 04: [facility] 24 mmol/l As of August 2022 testing method has changed, this may include reference ranges. ALT ALANINE AMINOTRANSFERASE 2024-11-05 04: [facility] 27 iu/l As of August 2022 testing method has changed, this may include reference ranges. NEUTROPHILS # (AUTO) 2024-11-05 04: [facility] 3.5 10 3/ul (missing) POTASSIUM 2024-11-05 04: [facility] 3.8 mmol/l As of August 2022 testing method has changed, this may include reference ranges. MEAN CORPUSCULAR HEMOGLOBIN 2024-11-05 04: [facility] 31.5 pg (missing) MEAN CORPUSCULAR HGB CONC 2024-11-05 04: [facility] 34.1 g/dl (missing) ALBUMIN 2024-11-05 04: [facility] 4.4 g/dl As of August 2022 testing method has changed, this may include reference ranges. RED BLOOD COUNT 2024-11-05 04: [facility] 4.66 10 6/ul (missing) TROPONIN I HIGH SENSITIVITY 2024-11-05 04: [facility] 4.8 ng/l A HIGH SENSITIVITY TROPONIN result of >= 14.9 ng/L for females is considered POSITIVE. A HIGH SENSITIVITY TROPONIN result of >= 19.8 ng/L for males is considered POSITIVE. A HIGH SENSITIVITY TROPONIN result of >= 17.9 ng/L for unspecified is considered POSITIVE. HCT - HEMATOCRIT 2024-11-05 04: [facility] 43.1 % (missing) WHITE BLOOD COUNT 2024-11-05: [facility] 5.4 x10 3/ul (missing) TOTAL PROTEIN 2024-11-05: [facility] 6.9 g/dl As of August 2022 testing method has changed, this may include reference ranges. ANION GAP 2024-11-05: [facility] 8.0 (missing) (missing) CALCIUM 2024-11-05: [facility] 8.9 mg/dl As of August 2022 testing method has changed, this may include reference ranges. MEAN PLATELET VOLUME 2024-11-05 04:23 [facility] 9.4 fl (missing) MEAN CORPUSCULAR VOLUME 2024-11-05 04:23 [facility] 92.5 fl (missing) ALKALINE PHOSPHATASE 2024-11-05 04:23 [facility] 93 iu/l As of August 2022 testing method has changed, this may include reference ranges. GFR - MDRD 2024-11-05 04:23 [facility] 97 (missing) The IDMS-traceable MDRD Study Equation [...] NUCLEATED RED BLOOD CELLS AUTO 2024-11-18 01:11 [facility] 0.0 /100wbc (missing) BASOPHILS # (AUTO) 2024-11-18 01:11 [facility] 0.0 10 3/ul (missing) EOSINOPHILS # (AUTO) 2024-11-18 01:11 [facility] 0.0 10 3/ul (missing) NRBC ABSOLUTE COUNT (AUTO) 2024-11-18 01:11 [facility] 0.00 x10 3/ul (missing) MONOCYTES # (AUTO) 2024-11-18 01:11 [facility] 0.4 10 3/ul (missing) LYMPHOCYTES # (AUTO) 2024-11-18 01:11 [facility] 0.9 10 3/ul (missing) BILIRUBIN,TOTAL 2024-11-18 01:11 [facility] 1.0 mg/dl As of August 2022 testing method has changed, this may include reference ranges. CREATININE 2024-11-18 01:11 [facility] 1.0 mg/dl As of August 2022 testing method has changed, this may include reference ranges. ALBUMIN/GLOBULIN RATIO 2024-11-18 01:11 [facility] 1.7 (missing) (missing) ESTIMATED AVERAGE GLUCOSE 2024-11-18 01:11 [facility] 105 mg/dl (missing) CHLORIDE 2024-11-18 01:11 [facility] 105 mmol/l As of August 2022 testing method has changed, this may include reference ranges. RED CELL DISTRIBUTION WIDTH 2024-11-18 01:11 [facility] 12.9 % (missing) LDL CHOLESTEROL,CALCULATED 2024-11-18 01:11 [facility] 125 mg/dl LDLD REFERENCE RANGE AND CARDIOVASCULAR RISK: <130 mg/dL Desirable 130-159 mg/dL Borderline High Risk >160 mg/dL High Risk ALKALINE PHOSPHATASE 2024-11-18 01:11 [facility] 129 iu/l As of August 2022 testing method has changed, this may include reference ranges. SODIUM 2024-11-18 01:11 [facility] 138 mmol/l (missing) TRIGLYCERIDES 2024-11-18 01:11 [facility] 146 mg/dl No Triglyceride Risk Classification <150 mg/dL Normal 150-199 mg/dL Borderline High 200-499 mg/dL High >500 mg/dL Very High As of August 2022 testing method has changed, this may include reference ranges. HGB - HEMOGLOBIN 2024-11-18 01:11 [facility] 15.0 g/dl (missing) GLUCOSE 2024-11-18 01:11 [facility] 169 mg/dl As of August 2022 testing method has changed, this may include reference ranges. AST ASPARTATE AMINOTRANSFERASE 2024-11-18 01:11 [facility] 172 iu/l As of August 2022 testing method has changed, this may include reference ranges. BUN - BLOOD UREA NITROGEN 2024-11-18 01:11 [facility] 18 mg/dl As of August 2022 testing method has changed, this may include reference ranges. CHOLESTEROL 2024-11-18 01:11 [facility] 199 mg/dl Total Cholesterol Risk Classification Cholesterol Level Risk Classification <200 mg/dL Desirable 200-239 mg/dL Borderline High >240 mg/dL High As of August 2022 testing method has changed, this may include reference ranges. THYROID STIMULATING HORMONE 2024-11-18 01:11 [facility] 2.19 uiu/ml (missing) GLOBULIN 2024-11-18 01:11 [facility] 2.7 g/dl (missing) LDL/HDL RATIO 2024-11-18 01:11 [facility] 2.8 (missing) (missing) PLT - PLATELET COUNT 2024-11-18 01:11 [facility] 220 10 3/ul (missing) ALT ALANINE AMINOTRANSFERASE 2024-11-18 01:11 [facility] 247 iu/l As of August 2022 testing method has changed, this may include reference ranges. CARBON DIOXIDE - CO2 2024-11-18 01:11 [facility] 26 mmol/l As of August 2022 testing method has changed, this may include reference ranges. VLDL CHOLESTEROL 2024-11-18 01:11 [facility] 29 mg/dl (missing) POTASSIUM 2024-11-18 01:11 [facility] 3.9 mmol/l As of August 2022 testing method has changed, this may include reference ranges. MEAN CORPUSCULAR HEMOGLOBIN 2024-11-18 01:11 [facility] 31.0 pg (missing) MEAN CORPUSCULAR HGB CONC 2024-11-18 01:11 [facility] 33.0 g/dl (missing) CHOL/HDL RATIO 2024-11-18 01:11 [facility] 4.4 (missing) NATIONAL CHOLESTEROL GUIDELINE NATIONAL HEART, [...] x Average 13.5 11.0 ALBUMIN 2024-11-18 01:11 [facility] 4.5 g/dl As of August 2022 testing method has changed, this may include reference ranges. RED BLOOD COUNT 2024-11-18 01:11 [facility] 4.84 10 6/ul (missing) HDL CHOLESTEROL 2024-11-18 01:11 [facility] 45 mg/dl Coronary Heart Disease Risk Classification HDL Level Risk factor < 40 mg/dL major risk > 60 mg/dL negative risk As of August 2022 testing method has changed, this may include reference ranges. HCT - HEMATOCRIT 2024-11-18 01:11 [facility] 45.4 % (missing) HEMOGLOBIN A1c% 2024-11-18 01:11 [facility] 5.3 % The [place] [employer] (ADA) has made the following recommendations: Monitoring HbA1c in Diabetic Patients: A1c (NGSP%) Goal <8 Less Stringent Goal <7 General Goal <6.5 More Stringent Goal Diagnosis of Diabetes: A1c (NGSP%) Goal >6.5 Diabetic 5.7-6.4 Pre-Diabetic <5.7 Non-Diabetic LIPASE 2024-11-18 01:11 [facility] 5978 u/l As of August 2022 testing method has changed, this may include reference ranges. ANION GAP 2024-11-18 01:11 [facility] 7.0 (missing) (missing) TOTAL PROTEIN 2024-11-18 01:11 [facility] 7.2 g/dl As of August 2022 testing method has changed, this may include reference ranges. GFR - MDRD 2024-11-18 01:11 [facility] 75 (missing) The IDMS-traceable MDRD Study Equation [...] clinical presentation GLUCOSE, URINE (UA) 2024-11-18 01:34 [facility] NEGATIVE mg/dl (missing) KETONES,URINE (UA) 2024-11-18 [...] NUCLEATED RED BLOOD CELLS AUTO 2024-11-18 05:04 [facility] 0.0 /100wbc (missing) BASOPHILS # (AUTO) 2024-11-18 05:04 [facility] 0.0 10 3/ul (missing) EOSINOPHILS # (AUTO) 2024-11-18 05:04 [facility] 0.0 10 3/ul (missing) NRBC ABSOLUTE COUNT (AUTO) 2024-11-18 05:04 [facility] 0.00 x10 3/ul (missing) MONOCYTES # (AUTO) 2024-11-18 05:04 [facility] 0.4 10 3/ul (missing) BILIRUBIN,TOTAL 2024-11-18 05:04 [facility] 0.8 mg/dl As of August 2022 testing method has changed, this may include reference ranges. CREATININE 2024-11-18 05:04 [facility] 0.9 mg/dl As of August 2022 testing method has changed, this may include reference ranges. LYMPHOCYTES # (AUTO) 2024-11-18 05:04 [facility] 1.0 10 3/ul (missing) ALBUMIN/GLOBULIN RATIO 2024-11-18 05:04 [facility] 1.9 (missing) (missing) MEAN PLATELET VOLUME 2024-11-18 05:04 [facility] 10.1 fl (missing) CHLORIDE 2024-11-18 05:04 [facility] 108 mmol/l As of August 2022 testing method has changed, this may include reference ranges. ALKALINE PHOSPHATASE 2024-11-18 05:04 [facility] 113 iu/l As of August 2022 testing method has changed, this may include reference ranges. GLUCOSE 2024-11-18 05:04 [facility] 117 mg/dl As of August 2022 testing method has changed, this may include reference ranges. AST ASPARTATE AMINOTRANSFERASE 2024-11-18 05:04 [facility] 118 iu/l As of August 2022 testing method has changed, this may include reference ranges. RED CELL DISTRIBUTION WIDTH 2024-11-18 05:04 [facility] 13.0 % (missing) HGB - HEMOGLOBIN 2024-11-18 05:04 [facility] 13.4 g/dl (missing) SODIUM 2024-11-18 05:04 [facility] 138 mmol/l (missing) BUN - BLOOD UREA NITROGEN 2024-11-18 05:04 [facility] 14 mg/dl As of August 2022 testing method has changed, this may include reference ranges. MAGNESIUM 2024-11-18 05:04 [facility] 2.0 mg/dl As of August 2022 testing method has changed, this may include reference ranges. GLOBULIN 2024-11-18 05:04 [facility] 2.2 g/dl (missing) PLT - PLATELET COUNT 2024-11-18 05:04 [facility] 208 10 3/ul (missing) ALT ALANINE AMINOTRANSFERASE 2024-11-18 05:04 [facility] 208 iu/l As of August 2022 testing method has changed, this may include reference ranges. CARBON DIOXIDE - CO2 2024-11-18 05:04 [facility] 26 mmol/l As of August 2022 testing method has changed, this may include reference ranges. MEAN CORPUSCULAR HEMOGLOBIN 2024-11-18 05:04 [facility] 31.6 pg (missing) MEAN CORPUSCULAR HGB CONC 2024-11-18 05:04 [facility] 33.6 g/dl (missing) HCT - HEMATOCRIT 2024-11-18 05:04 [facility] 39.9 % (missing) ANION GAP 2024-11-18 05:04 [facility] 4.0 (missing) (missing) ALBUMIN 2024-11-18 05:04 [facility] 4.2 g/dl As of August 2022 testing method has changed, this may include reference ranges. POTASSIUM 2024-11-18 05:04 [facility] 4.2 mmol/l As of August 2022 testing method has changed, this may include reference ranges. RED BLOOD COUNT 2024-11-18 05:04 [facility] 4.24 10 6/ul (missing) NEUTROPHILS # (AUTO) 2024-11-18 05:04 [facility] 6.0 10 3/ul (missing) TOTAL PROTEIN 2024-11-18 05:04 [facility] 6.4 g/dl As of August 2022 testing method has changed, this may include reference ranges. WHITE BLOOD COUNT 2024-11-18 05:04 [facility] 7.4 x10 3/ul (missing) CALCIUM 2024-11-18 05:04 [facility] 8.3 mg/dl As of August 2022 testing method has changed, this may include reference ranges. GFR - MDRD 2024-11-18 05:04 [facility] 85 (missing) The IDMS-traceable MDRD Study Equation [...] April 2011. MEAN CORPUSCULAR VOLUME 2024-11-18 05:04 [facility] 94.1 fl (missing) Result panel 5 LIPASE 2024-11-18 18:49 [facility] 488 u/l As of August 2022 testing method has changed, this may include reference ranges. Result panel 6 CREATININE 2024-11-19 05:25 [facility] 1.0 mg/dl As of August 2022 testing method has changed, this may include reference ranges. BILIRUBIN,TOTAL 2024-11-19 05:25 [facility] 1.2 mg /dl As of August 2022 testing method has changed, this may include reference ranges. ALBUMIN/GLOBULIN RATIO 2024-11-19 05:25 [facility] 1.9 (missing) (missing) GLUCOSE 2024-11-19 05:25 [facility] 102 mg/dl As of August 2022 testing method has changed, this may include reference ranges. CHLORIDE 2024-11-19 05:25 [facility] 106 mmol/l As of August 2022 testing method has changed, this may include reference ranges. ALKALINE PHOSPHATASE 2024-11-19 05:25 [facility] 108 iu/l As of August 2022 testing method has changed, this may include reference ranges. ALT ALANINE AMINOTRANSFERASE 2024-11-19 05:25 [facility] 131 iu/l As of August 2022 testing method has changed, this may include reference ranges. SODIUM 2024-11-19 05:25 [facility] 139 mmol/l (missing) GLOBULIN 2024-11-19 05:25 [facility] 2.1 g/dl (missing) CARBON DIOXIDE - CO2 2024-11-19 05:25 [facility] 28 mmol/l As of August 2022 testing method has changed, this may include reference ranges. POTASSIUM 2024-11-19 05:25 [facility] 3.8 mmol/l As of August 2022 testing method has changed, this may include reference ranges. ALBUMIN 2024-11-19 05:25 [facility] 3.9 g/dl As of August 2022 testing method has changed, this may include reference ranges. AST ASPARTATE AMINOTRANSFERASE 2024-11-19 05:25 [facility] 41 iu/l As of August 2022 testing method has changed, this may include reference ranges. ANION GAP 2024-11-19 05:25 [facility] 5.0 (missing ) (missing) TOTAL PROTEIN 2024-11-19 05:25 [facility] 6.0 g/dl As of August 2022 testing method has changed, this may include reference ranges. GFR - MDRD 2024-11-19 05:25 [facility] 75 (elsa hayes) The IDMS-traceable MDRD Study [...] BUN - BLOOD UREA NITROGEN 2024-11-19 05:25 [facility] 8 mg/dl As of Aug testing method has changed, this may include reference ranges. CALCIUM 2024-11-19 05:25 [facility] 8.8 mg/dl As of August 2022 testing method has changed, this may include reference ranges. Social History date description facility
== END 2024-11-19 14:50 | disposition home or self-care (01) | DRG 418 ==
LOC: ED 00:24 → SUATTDRO 03:05 → MS3 03:05
PROVIDERS: ADMIT Student in an Organized Health Care Education/Training Program; ATTEND Student in an Organized Health Care Education/Training Program
DX: R74.01 Elevation of levels of liver transaminase levels; K80.10 Calculus of gallbladder with chronic cholecystitis without obstruction; I10 Essential (primary) hypertension; R73.9 Hyperglycemia, unspecified; K85.10 Biliary acute pancreatitis without necrosis or infection